=== PATIENT | female | born 2000 | race Caucasian/White ===

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

== ENCOUNTER → 2018-01-05 18:12 | Outpatient (CLI) | payer BC, SELFPAY ==
--- NOTE | 2018-01-05 18:17 | US_ITS ---
STUDY: ULTRASOUND OF THE FEMALE PELVIS - COMPLETE REASON FOR EXAM: Female, 17 years old. Pelvic pain LMP: January 05, 2018 TECHNIQUE: Endovaginal TECHNICAL QUALITY: Adequate. COMPARISON: None. FINDINGS: The uterus is anteverted and is in a midline position. The uterus measures 5.9 x 4.7 x 3.1 cm. Normal uterine cervix. The endometrium measures 3 mm in thickness, and is hyperechoic. There is no demonstrated endometrial mass. There is no demonstrated myometrial mass. The patient has an I.U.D. in the mid to lower endometrial cavity The right ovary is visualized. The right ovary measures 3.0 x 2.1 x 1.8 cm. There is no right ovarian cyst or ovarian mass. There is no visualized right adnexal mass or complex lesion. There is normal arterial and normal venous vascularity. The left ovary is visualized. The left ovary measures 3.0 x 1.9 x 1.9 cm. There is no left ovarian cyst or ovarian mass. There is no visualized left adnexal mass or complex lesion. There is normal arterial and normal venous vascularity. There is no fluid in the cul-de-sac. The pre void volume of the bladder was 442 ml with mild debris. US/Pelvic (Non ) IMPRESSION: IUD noted at the mid to lower endometrial cavity. Mild debris in the urinary bladder. Electronically Signed: Logan Felder DO at 23:46 EDT Tel [phone], Service support ,
--- NOTE | 2018-01-05 18:25 | US_ITS ---
STUDY: ULTRASOUND OF THE FEMALE PELVIS - COMPLETE REASON FOR EXAM: Female, 17 years old. Pelvic pain LMP: January 05, 2018 TECHNIQUE: Endovaginal TECHNICAL QUALITY: Adequate. COMPARISON: None. FINDINGS: The uterus is anteverted and is in a midline position. The uterus measures 5.9 x 4.7 x 3.1 cm. Normal uterine cervix. The endometrium measures 3 mm in thickness, and is hyperechoic. There is no demonstrated endometrial mass. There is no demonstrated myometrial mass. The patient has an I.U.D. in the mid to lower endometrial cavity The right ovary is visualized. The right ovary measures 3.0 x 2.1 x 1.8 cm. There is no right ovarian cyst or ovarian mass. There is no visualized right adnexal mass or complex lesion. There is normal arterial and normal venous vascularity. The left ovary is visualized. The left ovary measures 3.0 x 1.9 x 1.9 cm. There is no left ovarian cyst or ovarian mass. There is no visualized left adnexal mass or complex lesion. There is normal arterial and normal venous vascularity. There is no fluid in the cul-de-sac. The pre void volume of the bladder was 442 ml with mild debris. US/Transvaginal Non- IMPRESSION: IUD noted at the mid to lower endometrial cavity. Mild debris in the urinary bladder. Electronically Signed: Logan Felder DO at 23:46 EDT Tel [phone], Service support ,
== END ==
PROVIDERS: Family Provider Pediatrics; PCP Pediatrics; Referring Provider Obstetrics & Gynecology; Visit Provider Obstetrics & Gynecology
DX: R10.2 Pelvic and perineal pain (principal)
CPT/HCPCS: 76830; 76856; 93976

== ENCOUNTER → 2020-01-26 17:01 | Outpatient (CLI) | payer BC, SELFPAY ==
[2020-01-26 13:28] VITALS: BMI 27.6
[2020-01-31 18:25] LABS: HPV Reflexed? NOT INDICATED
== END ==
PROVIDERS: PCP Pediatrics; Referring Provider Obstetrics & Gynecology; Visit Provider Obstetrics & Gynecology
DX: Z12.4 Encounter for screening for malignant neoplasm of cervix (principal)
CPT/HCPCS: 88175; G0145

== ENCOUNTER 2021-04-22 12:25 | Outpatient (CLI) | payer BC, SELFPAY ==
--- NOTE | 2021-04-22 12:33 | US_ITS ---
STUDY: ULTRASOUND OF THE FEMALE PELVIS - COMPLETE REASON FOR EXAM: Female, 20 years old. PAIN WORSE ON RIGHT SIDE -- IUD -- LMP 04/01/2021 LMP: 04/01/2021. TECHNIQUE: Transvaginal TECHNICAL QUALITY: Adequate. COMPARISON: Comparison is made with prior study dated 01/05/2018. FINDINGS: The uterus is anteverted and is tilted to the right side of the pelvis. The uterus measures 6.5 cm x 4.5 cm x 2.6 cm. Normal uterine cervix. The endometrium measures 2.3 mm in thickness, and is hyperechoic. There is no demonstrated endometrial mass. There is no demonstrated myometrial mass. I.U.D. - The patient does have an I.U.D. fundal in location The right ovary is visualized. The right ovary measures 3.9 cm x 2 cm x 2.2 cm. There is no right ovarian cyst or ovarian mass. There is no visualized right adnexal mass or complex lesion. There is normal arterial and normal venous vascularity. The left ovary is visualized. The left ovary measures 3 cm x 2.1 cm x 2.4 cm. There is no left ovarian cyst or ovarian mass. There is no visualized left adnexal mass or complex lesion. There is normal arterial and normal venous vascularity. There is no fluid in the cul-de-sac. The pre void volume of the bladder was 150 ml. US/Pelvic (Non ) IMPRESSION: Normal female pelvis. Electronically Signed: Joby Johnson MD at 15:13 EST , Service support ,
--- NOTE | 2021-04-22 12:33 | US_ITS ---
STUDY: ULTRASOUND OF THE FEMALE PELVIS - COMPLETE REASON FOR EXAM: Female, 20 years old. Pain WORSE ON RIGHT SIDE -- IUD -- LMP 04/01/2021 LMP: TECHNIQUE: TECHNICAL QUALITY: Adequate. COMPARISON: None. FINDINGS: The uterus is anteverted and is in a midline position. The uterus measures cm. Normal uterine cervix. The endometrium measures mm in thickness, and is . There is no demonstrated endometrial mass. There is no demonstrated myometrial mass. I.U.D. - The patient does not have an I.U.D. The right ovary is visualized. The right ovary measures cm. There is no right ovarian cyst or ovarian mass. There is no visualized right adnexal mass or complex lesion. There is normal arterial and normal venous vascularity. The left ovary is visualized. The left ovary measures cm. There is no left ovarian cyst or ovarian mass. There is no visualized left adnexal mass or complex lesion. There is normal arterial and normal venous vascularity. There is no fluid in the cul-de-sac. The pre void volume of the bladder was ml. The post void volume of the bladder was ml. Polycystic ovary disease: No. US/Transvaginal Non- IMPRESSION: Normal female pelvis. Electronically Signed: Joby Johnson MD at 15:14 EST , Service support ,
== END 2021-04-22 23:59 | disposition short-term general hospital (02) ==
PROVIDERS: PCP Pediatrics; Referring Provider Nurse Practitioner Women's Health; Visit Provider Nurse Practitioner Women's Health
DX: R10.2 Pelvic and perineal pain (principal); Z30.431 Encounter for routine checking of intrauterine contraceptive device
CPT/HCPCS: 76830; 76856; 93976

== ENCOUNTER 2021-06-11 09:54 | Outpatient (CLI) | payer BC, SELFPAY ==
[2021-06-11 11:11] LABS: AST(SGOT) 18 U/L (15-37); Alanine Aminotransfer ALT/SGPT 20 U/L (13-56); Cholesterol 205 mg/dL (200); High Density Lipoprotein 61 mg/dL; Triglycerides 82 mg/dL; Very Low Density Lipoprotein 16 mg/dL (5-40)
[2021-06-11 11:13] LABS: hCG Titer Quant., Serum < 1 mIU/mL (1-3)
== END 2021-06-11 23:59 | disposition home or self-care (01) ==
LOC: LAB 09:58
PROVIDERS: Referring Provider Dermatology; Visit Provider Dermatology
DX: L70.0 Acne vulgaris (principal); Z79.899 Other long term (current) drug therapy
CPT/HCPCS: 36415; 80061; 84450; 84460; 84702

== ENCOUNTER 2021-07-16 14:18 | Outpatient (CLI) | payer BC, SELFPAY ==
[2021-07-16 17:57] LABS: Internal QC Validated? YES +Cl - CLEAR BKGD; Pregnancy, Urine Negative Negative
== END 2021-07-16 23:59 | disposition home or self-care (01) ==
LOC: MTLAB 14:20
PROVIDERS: Referring Provider Dermatology; Visit Provider Dermatology
DX: L70.0 Acne vulgaris (principal); Z79.899 Other long term (current) drug therapy
CPT/HCPCS: 81025

== ENCOUNTER → 2021-08-15 | Outpatient (CLI) | payer BC, SELFPAY ==
[2021-08-15 17:29] LABS: Internal QC Validated? YES +Cl - CLEAR BKGD; Pregnancy, Urine Negative Negative
== END | disposition home or self-care (01) ==
LOC: MTLAB 15:29
PROVIDERS: PCP Pediatrics; Referring Provider Dermatology; Visit Provider Dermatology
DX: L70.0 Acne vulgaris (principal); Z79.899 Other long term (current) drug therapy
CPT/HCPCS: 81025

== ENCOUNTER → 2021-08-21 | Outpatient (CLI) | payer BC, SELFPAY ==
--- NOTE | 2021-08-21 17:43 | MRI_ITS ---
STUDY: MR Knee W/O Contrast 08/21/2021 7:03 PM REASON FOR EXAM: Female, 21 years old. ANTERIOR LEFT KNEE PAIN, HX PRIOR SURGERY 2012-ACL REPLACEMENT, MEDIAL AND LATERAL MENISCUS REPAIR TECHNIQUE: Standardized fat and water weighted pulse sequences were obtained in all 3 orthogonal planes. COMPARISON: Mar 18 2016 8:48am FINDINGS: Tear of the posterior horn of the medial meniscus with inferior surfacing. Normal hyaline cartilage of the medial femorotibial compartment. Normal medial femoral condyle and tibial plateau. Normal medial collateral ligamentous complex (MCL). Normal distal semimembranosus, gracilis and semitendinosus tendons. Normal lateral meniscus. Normal hyaline cartilage of the lateral femorotibial compartment. There is reactive marrow edema of the posterior aspect of the lateral tibial plateau. Normal proximal tibiofibular articulation. Normal lateral collateral (fibular) ligament. Normal popliteus tendon. Normal biceps femoris tendon. Status post ACL reconstruction with complete recurrent tear of the graft. There is buckling of an intact PCL. Normal congruent patellofemoral articulation. Normal hyaline cartilage of the patellofemoral compartment. Normal medial and lateral patellar retinaculum. Normal quadriceps tendon. Normal patellar tendon. Normal Hoffa''s fat pad. There is a small volume joint effusion. The soft tissues are unremarkable. The otherwise visualized osseous structures are unremarkable. MRI/Lower Ext Joint Only (Routine) IMPRESSION: Status post ACL reconstruction with complete recurrent tear of the graft. Tear of the posterior horn of the medial meniscus with inferior surfacing. There is a small volume joint effusion. There is reactive marrow edema of the posterior aspect of the lateral tibial plateau. Electronically Signed: Roland Lang MD at 19:09 EDT ,
== END | disposition home or self-care (01) ==
LOC: MRI 17:43
PROVIDERS: PCP Pediatrics
DX: M23.92 Unspecified internal derangement of left knee (principal)
CPT/HCPCS: 73721

== ENCOUNTER → 2021-09-30 | Outpatient (CLI) | payer BC, SELFPAY ==
[2021-09-30 10:35] LABS: Internal QC Validated? YES +Cl - CLEAR BKGD; Pregnancy, Serum, hCG Quali. NEGATIVE Negative
[2021-09-30 10:52] LABS: AST(SGOT) 20 U/L (15-37); Alanine Aminotransfer ALT/SGPT 31 U/L (13-56); Cholesterol 208 mg/dL (200); High Density Lipoprotein 47 mg/dL; Triglycerides 101 mg/dL; Very Low Density Lipoprotein 20 mg/dL (5-40)
== END | disposition home or self-care (01) ==
LOC: MTLAB 08:34
PROVIDERS: PCP Pediatrics; Referring Provider Dermatology; Visit Provider Dermatology
DX: L70.0 Acne vulgaris (principal); Z79.899 Other long term (current) drug therapy
CPT/HCPCS: 36415; 80061; 84450; 84460; 84703

== ENCOUNTER → 2021-10-22 | Outpatient (CLI) | payer BC, SELFPAY ==
[2021-10-22 18:03] LABS: Internal QC Validated? YES +Cl - CLEAR BKGD; Pregnancy, Urine Negative Negative
== END | disposition home or self-care (01) ==
LOC: MTLAB 16:44
PROVIDERS: PCP Pediatrics; Referring Provider Dermatology; Visit Provider Dermatology
DX: L70.0 Acne vulgaris (principal); Z79.899 Other long term (current) drug therapy
CPT/HCPCS: 81025

== ENCOUNTER → 2021-11-19 | Outpatient (CLI) | payer BC, SELFPAY ==
[2021-11-19 18:37] LABS: Internal QC Validated? YES +Cl - CLEAR BKGD; Pregnancy, Urine Negative Negative
== END | disposition home or self-care (01) ==
LOC: MTLAB 14:40
PROVIDERS: PCP Pediatrics; Referring Provider Dermatology; Visit Provider Dermatology
DX: L70.0 Acne vulgaris (principal); Z79.899 Other long term (current) drug therapy
CPT/HCPCS: 81025

== ENCOUNTER → 2021-12-26 | Outpatient (CLI) | payer BC, SELFPAY ==
[2021-12-26 12:13] LABS: Internal QC Validated? YES +Cl - CLEAR BKGD; Pregnancy, Urine Negative Negative
== END | disposition home or self-care (01) ==
LOC: MTLAB 09:33
PROVIDERS: PCP Pediatrics; Referring Provider Dermatology; Visit Provider Dermatology
DX: L70.0 Acne vulgaris (principal); Z79.899 Other long term (current) drug therapy
CPT/HCPCS: 81025

== ENCOUNTER → 2022-02-04 | Outpatient (CLI) | payer BC, SELFPAY ==
[2022-02-04 12:06] LABS: Internal QC Validated? YES +Cl - CLEAR BKGD; Pregnancy, Urine Negative Negative
== END | disposition home or self-care (01) ==
LOC: MTLAB 10:47
PROVIDERS: PCP Pediatrics; Referring Provider Dermatology; Visit Provider Dermatology
DX: L70.0 Acne vulgaris (principal); Z79.899 Other long term (current) drug therapy
CPT/HCPCS: 81025

== ENCOUNTER → 2022-03-18 | Outpatient (CLI) | payer BC, SELFPAY ==
[2022-03-18 15:16] LABS: Internal QC Validated? YES +Cl - CLEAR BKGD; Pregnancy, Urine Negative Negative
== END | disposition home or self-care (01) ==
PROVIDERS: PCP Pediatrics; Referring Provider Dermatology; Visit Provider Dermatology
DX: L70.0 Acne vulgaris (principal); Z79.899 Other long term (current) drug therapy
CPT/HCPCS: 81025

== ENCOUNTER → 2022-03-28 | Outpatient (CLI) | payer BC, SELFPAY ==
[2022-03-28 12:15] LABS: Internal QC Validated? YES +Cl - CLEAR BKGD; Pregnancy, Urine Negative Negative
== END | disposition home or self-care (01) ==
LOC: MTLAB 10:12
PROVIDERS: PCP Pediatrics; Referring Provider Dermatology; Visit Provider Dermatology
DX: Z79.899 Other long term (current) drug therapy (principal)
CPT/HCPCS: 81025

== ENCOUNTER → 2022-05-06 | Outpatient (CLI) | payer BC, SELFPAY ==
[2022-05-06 15:21] LABS: Internal QC Validated? YES +Cl - CLEAR BKGD; Pregnancy, Urine Negative Negative
== END | disposition home or self-care (01) ==
LOC: MTLAB 11:37
PROVIDERS: PCP Pediatrics; Referring Provider Dermatology; Visit Provider Dermatology
DX: L70.0 Acne vulgaris (principal); Z79.899 Other long term (current) drug therapy
CPT/HCPCS: 81025

== ENCOUNTER → 2022-06-05 | Outpatient (CLI) | payer BC, SELFPAY ==
[2022-06-05 15:43] LABS: Internal QC Validated? YES +Cl - CLEAR BKGD; Pregnancy, Urine Negative Negative
== END | disposition home or self-care (01) ==
LOC: MTLAB 13:33
PROVIDERS: PCP Pediatrics; Referring Provider Dermatology; Visit Provider Dermatology
DX: L70.0 Acne vulgaris (principal); Z79.899 Other long term (current) drug therapy
CPT/HCPCS: 81025

== ENCOUNTER 2022-06-17 10:00 | Outpatient (RCR) | payer BC, SELFPAY ==
--- NOTE | 2021-12-13 13:29 | HP.PTEVAL_ITS ---
Patient's Visit Information MARIBELL SHIPLEY is a 21 year old F referred to Physical Therapy by SHARI SILVER with a diagnosis of L ACLR with meniscus repair. Date of Evaluation: 12/13/21 Physical Therapist: Angel Mclean DPT - Visit Plan Frequency: 2x /Week Duration: 4 Months Plan: Start with quad/glute activation, progressive knee ROM as tolerated. No forceful flexion greater than 90deg. Progress per protocol. May use VASO and ice to reduce edema. - Subjective Pt. is here today for her initial evaluation with diagnosis of S/P L ACL reconstruction with meniscal repair. DOS: 12/11/21. Pt. arrives today on crutches with proper use and TROM brace locked in extension. Pt. reports high levels of soreness, but is taking medication as prescribed. Pt. is a [employer] by [employer]. PMH: previous ACLR then re tare without reconstruction. This time she was on a 4 lopez and tipped it, in attempt to correct self she stuck her leg out to brace and felt a pop. Resulted in ACL and meniscal tear. She is currently NWBing on the LLE. She reports icing at home frequently and elevating. She has not attempted to bend her knee and issac bandage is still in place with ice unit, which she reports she is allowed to remove tomorrow. No dizziness, shortness of breath, or fever noted. No calf pain noted. Pt. is hopeful to get back to work and be able to complete all recreational activities without limitations. - Pain L knee Pain Intensity (Out of 10): 6 Pain Intensity Range: 3, 8 - Objective POSTURE: Pt. stands with use of B axillary crutches with NWBing on LLE. TROM brace in place. PALPATION: Pt. has no tenderness throughout LLE, Normal healing incision noted. No calf tenderness. NEURO: normal sensation, normal DTR of L Achilles. ROM: R knee 0-0-135deg. L knee: 0-3-50deg. Tightness noted in B HS. MMT: RLE 5/5 throughout. LLE: Pt. is able to do a quad set, but is difficult. Pt. is unable to do a SLR with brace on this date. GAIT: Pt. is able to ambulate with crutches with good NWB. Pt. reports not tolerating TTWBing well. - Balance/Special Test Scores Lower Extremity Functional Score: 7 - Goals Goal 1:: STG: pt. to be able to complete SLR with out quad lag 2x10 sets Goal Time Frame: 2 Weeks Goal 2:: STG: Pt. to have increased L knee ROM to 0-0-120deg actively without increase in symptoms. Goal Time Frame: 2-4 Weeks Goal 3:: STG: Pt. to have L knee edema close to symmetrical of the R knee. Goal Time Frame: 2-4 Weeks Goal 4:: LTG: Pt. to have normal gait pattern without use of crutches without increase in symptoms. Goal Time Frame: 4-6 Weeks - Rehabilitation Potential Physical Therapy Diagnosis: Pt. has signs and symptoms of L ACLR with meniscus repair with DOS: 12/11/21. Pt. has subsequent hypomobility, weakness, difficulty with gait, decreased functional mobility. Pt. would benefit from PT to address the above limitations progressing back to all recreational and work related activities without limitations. Rehabilitation Potential: Excellent - Anticipated Interventions Patient/Client Instruction: Educate patient on: Condition, Plan of Care, Risk Factors, Benefits of Fitness Program For the Purpose of:: To improve health and function, To foster healthy habits, To improve decision making, To facilitate caregiver knowledge, To improve self management, To prevent re-injury, To improve ability to perform tasks related to life management Therapeutic Exercise to Include: Strength training, Power training, Balance training, Coordination, Body mechanics, Postural training, Flexibilty training, Gait and locomotor training, Passive ROM, Active ROM For the Purpose of:: To decrease pain, To decrease swelling/inflammation, To increase ROM, To improve nutrient delivery to tissue, To increase oxygenation perfusion, To improve muscle performance and motor function, To improve ability to perform ADL's, To improve ability of physical actions for home/community/work/leisure, To improve gait and locomotor functions, To improve health of tissue, To decrease soft tissue restriction, To increase flexibility/ROM TENS: Yes Cryotherapy (ice pack, ice massage): Yes Vasopneumatic device: Yes For the Purpose of:: To decrease pain, To decrease swelling/inflammation, To increase ROM, To improve nutrient delivery to tissue, To increase oxygenation perfusion, To improve health of tissue, To decrease soft tissue restriction Thank you for the opportunity to evaluate your patient. For Medicare and Medicare O plans, please review the plan of care and approve it. It will need to be FAXED BACK to us at [phone] for Medicare purposes. For Medicare only, by signing this I certify the plan of care. Please let me know if there are questions or concerns regarding this plan of care. Physician Signature: Date:
--- NOTE | 2022-01-23 16:15 | HP.PTREVAL ---
SHARI SILVER, It has been my pleasure to treat MARIBELL SHIPLEY over the last 15 visits for L ACLR with meniscus repair. Please see the progress note below for an update on the physical therapy plan of care! Subjective: Pt. reports no issues today. She has been Objective/Function: ROM: 0-0-119deg AROM. PROM: 0-0-124deg after stretching. quad set: improved quad set, but not perfect yet. SLR: 15 with slight lag with SLR. GAIT: Pt. does have a tendency to lack TKE during L stance phase. After stretching improves. She denies much pain with walking. She needs to continue to work on TKE strength and ROM. Flexion is decent. Pt. to follow up with physician tomorrow. Plan Plan: Awaiting official. WB status call from doctor. Start with quad/glute activation, progressive knee ROM as tolerated. No forceful flexion greater than 90deg. Progress per protocol. May use VASO and ice to reduce edema. Balance/Gait/Functional tests - Balance/Special Test Scores Lower Extremity Functional Score: 7 Goals Goal 1:: STG: pt. to be able to complete SLR with out quad lag 2x10 sets Goal Time Frame: 2 Weeks Goal Progress: Progressing Goal 2:: STG: Pt. to have increased L knee ROM to 0-0-120deg actively without increase in symptoms. Goal Time Frame: 2-4 Weeks Goal Progress: Goal Met Goal 3:: STG: Pt. to have L knee edema close to symmetrical of the R knee. Goal Time Frame: 2-4 Weeks Goal Progress: Progressing Goal 4:: LTG: Pt. to have normal gait pattern without use of crutches without increase in symptoms. Goal Time Frame: 4-6 Weeks Goal Progress: Progressing Goal 5:: LTG: Pt. to have strength 90% of each other throughout. Goal Time Frame: 2-4 Weeks Goal Progress: Progressing Anticipated Interventions Patient/Client Instruction: Educate patient on: Condition, Plan of Care, Risk Factors, Benefits of Fitness Program For the Purpose of:: To improve health and function, To foster healthy habits, To improve decision making, To facilitate caregiver knowledge, To improve self management, To prevent re-injury, To improve ability to perform tasks related to life management Therapeutic Exercise to Include: Strength training, Power training, Balance training, Coordination, Body mechanics, Postural training, Flexibilty training, Gait and locomotor training, Passive ROM, Active ROM For the Purpose of:: To decrease pain, To decrease swelling/inflammation, To increase ROM, To improve nutrient delivery to tissue, To increase oxygenation perfusion, To improve muscle performance and motor function, To improve ability to perform ADL's, To improve ability of physical actions for home/community/work/leisure, To improve gait and locomotor functions, To improve health of tissue, To decrease soft tissue restriction, To increase flexibility/ROM TENS: Yes Cryotherapy (ice pack, ice massage): Yes Vasopneumatic device: Yes For the Purpose of:: To decrease pain, To decrease swelling/inflammation, To increase ROM, To improve nutrient delivery to tissue, To increase oxygenation perfusion, To improve health of tissue, To decrease soft tissue restriction Please do not hesitate to contact me at [phone] by phone or if you have questions or concerns regarding this new plan of care! Sincerely, Angel Mclean DPT
== END 2022-06-17 10:59 | disposition home or self-care (01) ==
LOC: PT 10:00
PROVIDERS: PCP Pediatrics
DX: Z47.89 Encounter for other orthopedic aftercare (principal)
CPT/HCPCS: 97014; 97016; 97110; 97161; 97164; G0283

== ENCOUNTER 2022-06-20 16:02 | Emergency (ER) | payer BC, SELFPAY ==
[2022-06-20 16:03] VITALS: BP 122/79; PULSE 103; RESP 16; TEMP 36.9; O2SAT 98; BMI 31.6
--- NOTE | 2022-06-20 16:12 | EX.ED.DYSGE1 ---
HPI <BALBIR Hughes - Last Filed: 06/20/22 17:00> History of Present Illness Chief Complaint: Lower Extremity Injury Narrative Narrative: 22-year-old female had a revision left knee surgery 3 days ago for a meniscal issue as well as scar tissue. Since then she developed some left calf pain. She had an outpatient ultrasound this morning showing a DVT and was sent here for treatment. She has no history of DVTs/PE and denies chest pain or shortness of breath. PFSH <BALBIR Hughes - Last Filed: 06/20/22 17:00> PFSH Home Medications levonorgestrel 14 mcg/24 hrs (3 yrs) 13.5 mg intrauterine device (Eva) 1 insert intrauterine ONCE 02/04/18 [History Last Taken Unknown] apixaban 5 mg (74 tabs) tablets in a dose pack (Eliquis DVT-PE Treat 30D Start) 5 mg PO BID #74 tabs 06/20/22 [Rx Last Taken Unknown] Allergy/AdvReac Type Severity Reaction Status Date / Time No Known Allergies Allergy Verified 06/20/22 16:05 Surgical History (Updated 11/07/21 @ 17:14 by Keily Magaña) meniscus surgery S/P ACL surgery screw in left knee Social History Smoking Status: Never smoker alcohol intake: never substance use type: does not use caffeine: Yes what type of physical activity do you participate in: walking seatbelt use: always do you feel safe at home: Yes additional social history: Works at [employer] Going to [employer] in November ROS <BALBIR Hughes - Last Filed: 06/20/22 17:00> ROS ED ROS Narrative Constitutional: Negative for fever, chills, malaise. CVS: Negative for palpitations, chest pain, syncope. Respiratory: Negative for shortness of breath, cough, orthopnea. Neuro: Negative for motor/sensory dysfunction. Skin: Negative for rash, abscess, or wound. Musc: Positive for left flank pain. Heme: Negative for easy bruising, bleeding, lymphadenopathy. EXAM <BALBIR Hughes - Last Filed: 06/20/22 17:00> Physical Exam Narrative Exam Narrative: CONST: Patient sitting in no acute distress. EYES: Normal inspection. NECK: Normal inspection. RESP: No respiratory distress, CTAB. CVS: Regular rate and rhythm, no murmur, no gallop. SKIN: Color normal, no rash, warm, dry, intact. EXTREMITIES: Normal appearance with symmetric lower extremities, slight tenderness left upper calf no palpable cords, no erythema or skin changes. Full ROM, normal strength and sensation, compartments soft, 2+ DP pulses. NEURO: Oriented x4. PSYCH: Normal affect. Const Vital Signs: 06/20/22 16:03 Temperature 98.4 F Temperature Source Temporal Pulse Rate 103 H Respiratory Rate 16 Blood Pressure 122/79 H Blood Pressure Mean 93 Pulse Ox 98 Oxygen Delivery Method Room Air <Dr. Yahir Woodard MD - Last Filed: 06/20/22 16:32> Physical Exam Const Vital Signs: 06/20/22 16:03 Temperature 98.4 F Temperature Source Temporal Pulse Rate 103 H Respiratory Rate 16 Blood Pressure 122/79 H Blood Pressure Mean 93 Pulse Ox 98 Oxygen Delivery Method Room Air MDM <BALBIR Hughes - Last Filed: 06/20/22 17:00> [facility] MDM Narrative Medical decision making narrative: Patient is POD #3 from left knee surgery and had an outpatient ultrasound positive for DVT. She has an acute DVT in the left A/P trunk, PTV and soleus vein. Her lower extremities appear normal, symmetric, no overlying skin changes or warmth. Neurovascularly intact. Compartments are soft. She will be started on Eliquis will likely need to be on this for 3 to 6 months. She has no baseline labs in the system so we will check blood counts and renal function prior to giving first dose of Eliquis in the ED along with a prescription for starter pack. CBC shows normal white count of 10.1, hemoglobin 12.9. BMP shows normal electrolyte and renal function. Patient was discharged in stable condition. Test considered but not ordered: CTA not indicated as she has no chest pain or shortness of breath, is 98% on room air. Heart rate is 103 but patient is tearful and anxious and is likely elevated secondary to this. Lab Data Attestation: I reviewed the patient's lab results. Labs: Laboratory Results - last 24 hr 06/20/22 06/20/22 16:34 16:34 WBC 10.1 RBC 4.26 Hgb 12.9 Hct 36.4 L MCV 85.4 MCH 30.3 MCHC 35.4 RDW Std Deviation 36.0 RDW Coeff of Sarkis 11.7 Plt Count 300 MPV 9.7 Immature Gran % (Auto) 0.500 Neut % (Auto) 63.7 Lymph % (Auto) 26.5 Banks % (Auto) 7.8 Eos % (Auto) 1.2 Baso % (Auto) 0.3 Absolute Neuts (auto) 6.4 Absolute Lymphs (auto) 2.67 Nucleated RBC % 0 Sodium 138 Potassium 3.6 Chloride 104 Carbon Dioxide 27.0 Anion Gap 7 BUN 13 Creatinine 0.74 Estim Creat Clear Calc 96.97 Est GFR (MDRD) Af Amer 124 Est GFR (MDRD) Non-Af 102 BUN/Creatinine Ratio 17.5 Glucose 102 Calcium 9.5 <Dr. Yahir Woodard MD - Last Filed: 06/20/22 16:32> [facility] Lab Data Labs: Laboratory Results - last 24 hr 06/20/22 06/20/22 16:34 16:34 WBC 10.1 RBC 4.26 Hgb 12.9 Hct 36.4 L MCV 85.4 MCH 30.3 MCHC 35.4 RDW Std Deviation 36.0 RDW Coeff of Sarkis 11.7 Plt Count 300 MPV 9.7 Immature Gran % (Auto) 0.500 Neut % (Auto) 63.7 Lymph % (Auto) 26.5 Banks % (Auto) 7.8 Eos % (Auto) 1.2 Baso % (Auto) 0.3 Absolute Neuts (auto) 6.4 Absolute Lymphs (auto) 2.67 Nucleated RBC % 0 Sodium 138 Potassium 3.6 Chloride 104 Carbon Dioxide 27.0 Anion Gap 7 BUN 13 Creatinine 0.74 Estim Creat Clear Calc 96.97 Est GFR (MDRD) Af Amer 124 Est GFR (MDRD) Non-Af 102 BUN/Creatinine Ratio 17.5 Glucose 102 Calcium 9.5 Treatment and Re-Evaluation :: I have personally performed a face to face assessment of the patient and have reviewed the EDNA Note. I performed a substantive portion of the visit including all aspects of the following. My shahid findings include: History: Patient had surgery on her left knee in [place] on Thursday. On Thursday she started to get some pain in the back of her calf. No chest pain. No trouble breathing. No history of DVT or PE. No known family history. No abnormal bleeding. She called her orthopedic surgeon in [place]. An outpatient ultrasound was done that verified DVT. Exam: Well-healing knee area and port sites. No active bleeding. Knee is not really swollen. There is some slight tenderness to the proximal posterior calf. I do not feel a cord. There is no distended veins. Distal pulses are normal. No pallor or redness. Lungs are clear. Oxygen is normal at 98% on room air. Medical Decison Making: We will do labs to make sure she has normal platelets and normal renal function. Assuming these are normal we will get her started on Eliquis. She will need to follow-up with her primary physician orthopedic surgeon. They would likely need further dosing for 3 to 6 months. They will likely need to do repeat ultrasounds to gauge resolution. If she develops chest pain dyspnea or excessive bleeding she needs to return. I did talk with her that she is at some increased risk from bleeding from surgery. But this was on Thursday. The risk to her from bleeding into a compressible space is not as much as not treating a DVT. Other additions or changes: [None] Discharge Plan Triage Chief Complaint: Lower Extremity Injury ED Midlevel Provider: Sammie Pelletier ED Provider: Yahir Woodard Dx/Rx/DC Orders Clinical Impression: Acute deep vein thrombosis (DVT) of left lower extremity Instructions: DVT Dc Prescriptions: New Eliquis DVT-PE Treat 30D Start 5 mg (74 tabs) tablets,dose pack 5 mg PO BID Qty: 74 0RF No Action Eva 14 mcg/24 hour (3 years) intrauterine device 1 insert Intrauterine ONCE Primary Care Provider: Danay Tinoco Referrals: Danay Tinoco MD [Primary Care Provider] - Activity Restrictions/Additional Instructions: Follow the instructions on the Eliquis starter pack. You take a higher dose for the first week and then down to 5 mg twice a day. You will likely be on this for 3 to 6 months but see your orthopedic doctor for further instructions. Risks of blood thinners include increased bleeding. If you have a head injury you need to be evaluated in the ER immediately. If you notice blood in your vomit or your stool come to the ER. Disposition Disposition: Home, Self Care
[2022-06-20 16:51] LABS: Absolute Lymphocyte Count 2.67 X10^3/uL (0.83-4.51); Absolute Neutrophil Count 6.4 X10^3/uL (2.0-7.7); Basophil# 0.03 X10^3/uL; Basophil% 0.3 % (0-1); Eosinophil# 0.12 X10^3/uL; Eosinophils% 1.2 % (0-5); Hematocrit 36.4 % (37-47); Hemoglobin 12.9 g/dL (12.0-15.0); Lymphocyte # 2.67 X10^3/ul (0.83-4.51); Lymphocyte % 26.5 % (19-41); Mean Corp Hgb Conc 35.4 g/dL (32-36); Mean Corpuscular Hgb 30.3 pg (27.0-32.0); Mean Corpuscular Volume 85.4 fL (81-99); Mean Platelet Vol. 9.7 fl (6.2-12.0); Monocyte# 0.79 X10^3/uL; Monocyte% 7.8 % (0-10); NRBC Flagged by Analyzer 0 % (0-5); Neutrophil # 6.42 X10^3/uL (2.7-7.7); Neutrophil % 63.7 % (47-70); Platelet Count 300 K/mm3 (150-450); RBC Distribution Width CV 11.7 % (11.6-14.6); Red Blood Count 4.26 M/mm3 (4.2-5.4); White Blood Count 10.1 K/mm3 (4.4-11.0)
[2022-06-20 16:55] LABS: Anion Gap 7 (5-15); BUN 13 mg/dL (7-18); BUN/Creat Ratio 17.5 RATIO (10-20); Calcium,Total 9.5 mg/dL (8.5-10.1); Chloride 104 mmol/L (98-107); Creatinine, Serum 0.74 mg/dL (0.55-1.02); EST Glomerular Filtration Rate 102 mL/min (>60); Est Glom Filt Rate - Afr Amer 124 mL/min (>60); Estimated Creatinine Clearance 96.97 ml/min; Glucose 102 mg/dL (74-106); Potassium 3.6 mmol/L (3.5-5.1); Sodium Level 138 mmol/L (136-145)
[2022-06-20] MEDS: APIXABAN 5 MG TABLET 10 MG PO (17:10)
== END 2022-06-20 17:12 | disposition home or self-care (01) ==
PROVIDERS: Physician Assistant; Emergency Provider Emergency Medicine; PCP Pediatrics; Visit Provider Emergency Medicine
DX: I82.402 Acute embolism and thrombosis of unspecified deep veins of left lower extremity (principal)
CPT/HCPCS: 80048; 85025; 99283; A4216

== ENCOUNTER → 2022-06-20 | Outpatient (CLI) | payer BC, SELFPAY ==
--- NOTE | 2022-06-20 15:22 | VDLE_ITS ---
Reason For Study: Calf pain RIGHT LEFT CFV is compressible, spontaneous, phasic, GSV is normal. competent and demonstrates normal CFV is compressible, spontaneous, phasic, augmentation. competent, and demonstrates normal Procedure augmentation. This is a venous duplex using B-mode, color FV is compressible, spontaneous, phasic, flow and spectral Doppler. competent and demonstrates normal Exam performed in department. augmentation. A preliminary report was called and/or faxed POP V is compressible, spontaneous, phasic, to [place] and RN. Patient to go to ED for competent and demonstrates normal treatment. augmentation. LT PerV is compressible. Acute deep vein thrombosis is noted in the left T/P Trunk, PTV and SoleusV. VL/Venous Duplex US, Unilateral Interpretation Summary Acute deep venous thrombosis left tibioperoneal trunk, posterior tibial, and so leus veins Patent and compressible left great saphenous vein Normal flow patterns right common femoral vein Ordering Physician: SHARI SILVER Referring Physician: Danay Tinoco Performed By: Yudy Ribeiro RVT
== END | disposition home or self-care (01) ==
PROVIDERS: PCP Pediatrics
DX: Z98.890 Other specified postprocedural states (principal); M79.662 Pain in left lower leg
CPT/HCPCS: 93971

== ENCOUNTER → 2022-07-03 | Outpatient (CLI) | payer BC, SELFPAY ==
[2022-07-15 12:19] LABS: HPV Reflexed? NOT INDICATED
== END | disposition home or self-care (01) ==
LOC: LABSPEC 16:30
PROVIDERS: PCP Pediatrics; Visit Provider Obstetrics & Gynecology
DX: Z12.4 Encounter for screening for malignant neoplasm of cervix (principal)
CPT/HCPCS: 88175; G0145

== ENCOUNTER 2022-08-01 09:00 | Outpatient (RCR) | payer BC, SELFPAY ==
--- NOTE | 2022-07-04 10:07 | HP.PTEVAL_ITS ---
Patient's Visit Information MARIBELL SHIPLEY is a 22 year old F referred to Physical Therapy by SHARI SILVER with a diagnosis of S/P L knee arthroscopy. Date of Evaluation: 06/19/22 Physical Therapist: Angel Mclean DPT - Visit Plan Frequency: 2x /Week Duration: 6 Weeks Plan: Start with ROM progressing, add in quad sets. Progress proper gait mechanics working away from crutches as tolerated. Progress end range extension. Progress per protocol. - Subjective Pt. is here today for her initial evaluation with S/P L knee arthroscopy. Pt. has a cyclopes lesion debridement and removal of a meniscal implant. Pt. arrives with crutches with good tolerance. Pt. reports having some soreness, but is overall doing better than she was pre surgery. Pt. does have some swelling, but overall doing okay. Pt. denies N/T. She has been trying some ROM, but not much since having surgery a few days prior. She is to work on ROM and reduce swelling. She follow up with physician in 2-3 weeks. Pt. denies calf pain, no fever, no other issues noted. 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 - Pain L knee Pain Intensity (Out of 10): 3 Pain Intensity Range: 0, 5 - Objective POSTURE: Pt. has increased wt. shift to R side in stance. Pt. lacks TKE on L side in stance. PALPATION: Pt. has good healing incisions, no signs of infection noted. Negative homans sign. NEURO: normal sensation in BLEs. Pt. has normal achilles DTR in BLEs. ROM: R Knee: 0-0-137deg. L knee 0-3-118deg. Pt. has normal HS length. EDEMA: Pt. has increased edema in L compared to R side. Pt. 6cm difference mid patella. MMT: Pt. is a quad set, but minimal. SLR 10deg lag with some mild anterior knee pain. GAIT: Pt. is ambulating with 2 crutches with good tolerance. She tends to off load heavily during L stance phase and does no achieve TKE during gait progression. - Balance/Special Test Scores Lower Extremity Functional Score: 19 - Goals Goal 1:: LTG: Pt. to be I with HEP. Goal Time Frame: 4-6 Weeks Goal 2:: STG: Pt. to have reduced edema symmetrical bilaterally. Goal Time Frame: 2-4 Weeks Goal 3:: STG: Pt. to have increased L knee ROM to 0-0-130deg without increase in symptoms. Goal Time Frame: 2-4 Weeks Goal 4:: LTG: Pt. to ambulate without AD with normal gait pattern without increase in symptoms. Goal Time Frame: 4-6 Weeks Goal 5:: LTG: Pt. to have 5/5 strength throughout LLE. Goal Time Frame: 4-6 Weeks - Rehabilitation Potential Physical Therapy Diagnosis: Pt. has signs and symptoms consistent with S/P L knee arthroscopy due to cyclopes lesion and removal of meniscal implant. Pt. has marked loss of ROM, increased edema, weakness and difficulty with gait. Pt. would benefit from PT to address the above limitations progressing back to all functional activities as tolerated. Rehabilitation Potential: Excellent - Anticipated Interventions Patient/Client Instruction: Educate patient on: Condition, Plan of Care, Risk Factors, Benefits of Fitness Program For the Purpose of:: To foster healthy habits, To improve decision making, To facilitate caregiver knowledge, To improve self management, To prevent re- injury, To improve ability to perform tasks related to life management Therapeutic Exercise to Include: Strength training, Power training, Body me chanics, Postural training, Flexibilty training, Gait and locomotor training, Passive ROM, Active ROM, Dynamic Lumbar Stabilization For the Purpose of:: To decrease pain, To increase ROM, To improve nutrient delivery to tissue, To increase oxygenation perfusion, To improve muscle performance and motor function, To improve ability to perform ADL's, To improve gait and locomotor functions, To improve health of tissue, To decrease soft tissue restriction, To increase flexibility/ROM, To improve endurance, To improve balance Thank you for the opportunity to evaluate your patient. For Medicare and Medicare HMO plans, please review the plan of care and approve it. It will need to be FAXED BACK to us at [phone] for Medicare purposes. For Medicare only, by signing this I certify the plan of care. Please let me know if there are questions or concerns regarding this plan of care. Physician Signature: Date:
== END 2022-08-01 19:00 | disposition home or self-care (01) ==
LOC: PT 09:00
PROVIDERS: PCP Pediatrics
DX: M23.92 Unspecified internal derangement of left knee (principal)
CPT/HCPCS: 97110; 97161

== ENCOUNTER → 2022-09-26 | Outpatient (CLI) | payer BC, SELFPAY ==
--- NOTE | 2022-09-26 13:00 | VDLE_ITS ---
Reason For Study: Hx of DVT LLE RIGHT LEFT CFV is compressible, spontaneous, phasic, GSV is normal. competent and demonstrates normal CFV is compressible, spontaneous, phasic, augmentation. competent, and demonstrates normal Procedure augmentation. This is a venous duplex using B-mode, color FV is compressible, spontaneous, phasic, flow and spectral Doppler. competent and demonstrates normal Exam performed in department. augmentation. A preliminary report was called and/or faxed POP V is compressible, spontaneous, phasic, to Bert Ramachandran HEDIS MANAGER. competent and demonstrates normal augmentation. T/P Trunk is compressible. PTV is compressible. LT PerV is compressible. VL/Venous Duplex US, Unilateral Interpretation Summary Deep veins of the left lower extremity are patent and compressible segmentally. There is no evidence of left lower extremity deep vein thrombosis. The left great saphenous vein pablo ears patent and compressible segmentally. Ordering Physician: Bert Ramachandran Referring Physician: Danay Tinoco Performed By: Carmen Ocampo RDCS, RVT
== END | disposition home or self-care (01) ==
LOC: CVS 12:59
PROVIDERS: PCP Pediatrics; Referring Provider Nurse Practitioner Family; Visit Provider Nurse Practitioner Family
DX: I82.462 Acute embolism and thrombosis of left calf muscular vein (principal)
CPT/HCPCS: 93971

== ENCOUNTER → 2023-02-27 | Outpatient (CLI) | payer BC, SELFPAY ==
[2023-02-27 12:40] LABS: Absolute Lymphocyte Count 2.44 X10^3/uL (0.83-4.51); Absolute Neutrophil Count 3.1 X10^3/uL (2.0-7.7); Basophil# 0.02 X10^3/uL; Basophil% 0.3 % (0-1); Eosinophil# 0.15 X10^3/uL; Eosinophils% 2.3 % (0-5); Hematocrit 37.8 % (37-47); Hemoglobin 12.8 g/dL (12.0-15.0); Lymphocyte # 2.44 X10^3/ul (0.83-4.51); Mean Corp Hgb Conc 33.9 g/dL (32-36); Mean Corpuscular Hgb 29.8 pg (27.0-32.0); Mean Corpuscular Volume 88.1 fL (81-99); Mean Platelet Vol. 10.4 fl (6.2-12.0); Monocyte# 0.66 X10^3/uL; Monocyte% 10.3 % (0-10); NRBC Flagged by Analyzer 0 % (0-5); Neutrophil # 3.13 X10^3/uL (2.7-7.7); Neutrophil % 48.8 % (47-70); Platelet Count 323 K/mm3 (150-450); RBC Distribution Width CV 11.4 % (11.6-14.6); Red Blood Count 4.29 M/mm3 (4.2-5.4); White Blood Count 6.4 K/mm3 (4.4-11.0)
[2023-02-27 13:06] LABS: ALB/GLOB Ratio 0.9 RATIO (0.9-2.4); AST(SGOT) 17 U/L (15-37); Alanine Aminotransfer ALT/SGPT 31 U/L (13-56); Albumin, Serum 3.8 g/dL (3.2-5.0); Alkaline Phosphatase 62 U/L (45-117); Anion Gap 6 (5-15); BUN 14 mg/dL (7-18); BUN/Creat Ratio 19.1 RATIO (10-20); Calcium,Total 8.8 mg/dL (8.5-10.1); Chloride 105 mmol/L (98-107); Cholesterol 206 mg/dL (200); Creatinine, Serum 0.73 mg/dL (0.55-1.02); EST Glomerular Filtration Rate 103 mL/min (>60); Est Glom Filt Rate - Afr Amer 125 mL/min (>60); Globulin 4.1 g/dL (2.2-4.2); Glucose 92 mg/dL (74-106); High Density Lipoprotein 54 mg/dL; Potassium 3.9 mmol/L (3.5-5.1); Protein, Total 7.9 g/dL (6.4-8.2); Sodium Level 137 mmol/L (136-145); Triglycerides 73 mg/dL; Very Low Density Lipoprotein 15 mg/dL (5-40)
[2023-02-27 13:48] LABS: Insulin 17.9 mU/L (2.6-37.6)
[2023-02-27 14:09] LABS: Hemoglobin A1c 5.4 % (3.8-5.6)
[2023-02-27 15:44] LABS: Thyroid Stim Hormone (TSH) 1.75 uIU/mL (0.358-3.74)
== END | disposition home or self-care (01) ==
LOC: MTLAB 09:50
PROVIDERS: PCP Pediatrics
DX: R63.5 Abnormal weight gain (principal)
CPT/HCPCS: 36415; 80053; 80061; 83036; 83525; 84443; 85025

== ENCOUNTER → 2023-06-16 | Outpatient (CLI) | payer BC, SELFPAY ==
--- NOTE | 2023-06-16 15:18 | US_ITS ---
INDICATION: Pelvic pain EXAMINATION: Ultrasound US Pelvis Non OB Complete With Transvaginal Imaging TECHNIQUE: Transabdominal and transvaginal pelvic ultrasound was performed. Grayscale, spectral waveform, and color flow Doppler evaluation of the adnexa. COMPARISON: Prior study dated: 1021 FINDINGS: UTERUS: Anteverted. The uterus measures 8.1 x 4.5 x 3.2 cm. There is no uterine mass. The endometrial stripe measures 3 mm in AP diameter which is within normal limits. There is an IUD within the limitation cavity was somewhat low in position. RIGHT OVARY: The right ovary measures 3.4 x 1.6 x 1.8 cm. Non-enlarged, normal echogenicity. There is normal arterial inflow and venous outflow present in the right ovary. LEFT OVARY: The left ovary measures 2.7 x 2.5 3.2 cm. There is a small cyst in the left ovary measuring about 2.2 cm There is normal arterial inflow and venous outflow present in the left ovary. FREE FLUID: None. US/Transvaginal Non- IMPRESSION: IUD somewhat low in position in the lower uterine endometrial cavity. Otherwise no significant abnormality is seen. Small left ovarian cyst. Electronically Signed: Yanick Jacobo MD at 9:12 EST ,
== END | disposition home or self-care (01) ==
PROVIDERS: PCP Nurse Practitioner Family; Referring Provider Nurse Practitioner Women's Health; Visit Provider Nurse Practitioner Women's Health
DX: Z30.431 Encounter for routine checking of intrauterine contraceptive device (principal); R10.2 Pelvic and perineal pain
CPT/HCPCS: 76830; 76856

== ENCOUNTER → 2023-06-25 | Outpatient (CLI) | payer BC, SELFPAY ==
--- OUTSIDE RECORDS SUMMARY | 2023-06-25 09:20 | XMS RPT_ITS | CCD ---
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 Darnell Mcintyre Attending Unavaila ble UNKNOWN, PCP Primary Care Unavailable Voos, Dr. Darnell Mcintyre Attending Unavaila ble UNKNOWN, PCP Primary Care Unavailable Bee, Mr. Bossman Parry Referring Unavaila geovani Quinones MD, Clyde Daniel Primary Care Provider Cherry Freeman Primary Care Provider BETTY LEIVA Attending Unavailable CLYDE QUINONES Primary Care Unavailable BETTY LEIVA Admitting Unavailable CLYDE QUINONES Primary Care Unavailable BETTY LEIVA Attending Unavailable BETTY LEIVA Admitting Unavailable STACIE CLYDE C Primary Care Unavailable SELF, SELF Referring Unavailable SHARI MARTIN Attending Unavailable SELF, SELF Referring Unavailable BETTY LEIVA Attending Unavailable KRISTI QUINONESA Fredy Primary Care Unavailable BETTY LEIVA Attending Unavailable BETTY LEIVA Referring Unavailable STACIE, CLYDE C Primary Care Unavailable SELF, SELF Referring Unavailable BETTY LEIVA Attending Unavailable STACIE, CLYDE C Primary Care Unavailable SELF, SELF Referring Unavailable BETTY LEIVA Attending Unavailable STACIE, CLYDE C Primary Care Unavailable SELF, SELF Referring Unavailable STACIE, CLYDE C Primary Care Unavailable SHARI MARTIN Attending Unavailable STACIE, CLYDE C Primary Care Unavailable BETTY LEIVA Referring Unavailable BETTY LEIVA Attending Unavailable CLYDE QUINONES Primary Care Unavailable SELF, SELF Referring Unavailable BETTY LEIVA Attending Unavailable CLYDE QUINONES Primary Care Unavailable SELF, SELF Referring Unavailable SHARI MARTIN Attending Unavailable SHARI MARTIN R Attending Unavailable CLYDE QUINONES Primary Care Unavailable VAUGHN MARTINE R Referring Unavailable CLYDE QUINONES Primary Care Unavailable SHARI MARTIN R Attending Unavailable VAUGHN MARTINE R Referring Unavailable SELF, SELF Referring Unavailable CHERRY RAMACHANDRAN Primary Care Unavailable BETTY LEIVA Attending Unavailable CHERRY RAMACHANDRAN Primary Care Unavailable BETTY LEIVA Referring Unavailable CLYDE QUINONES Primary Care Unavailable SHARI MARTIN R Attending Unavailable VAUGHN MARTINE R Referring Unavailable SELF, SELF Referring Unavailable KAREN WEBSTER Attending Unavailable CLYDE QUINONES Primary Care Unavailable CLYDE QUINONES Primary Care Unavailable Medications Current Medications Medication Drug Class(es) Dates Sig (Normalized) Sig (Original) cephalexin 500 mg oral capsule (1 source) Cephalosporin Antibacterial Start: 12-11-2021 End: 12-16-2021 take 1 capsule by mouth every twelve hours cephALEXin (Keflex) 500 MG capsule Indications: Internal derangement of left knee Take 1 by mouth every 12 hours. 10 capsule 0 12/11/2021 12/16/2021 Active DISABILITY PLACARD (7 sources) Start: 11-14-2021 End: 02-17-2022 DISABILITY PLACARD Indications: Status post knee surgery Dx: Status post knee surgery End Date: 02/17/22 1 Each 0 11/14/2021 02/17/2022 Active Completed/Discontinued Medications Medication Drug Class(es) Dates Sig (Normalized) Sig (Original) acetaminophen 325 mg oral tablet (1 source) Start: 12-11-2021 End: 12-11-2021 acetaminophen (TYLENOL) tablet 975 mg Problems Active Problems Problem Classification Problem Date Documented Da te Episodic/Chronic Complication of device; implant or graft (3 sources) Mechanical complication of internal joint prosthesis; Translations: [Other mechanical complication of other internal orthopedic devices, implants and grafts, initial encounter] Onset: 03-24-2023 03-24-2023 Episodic Joint disorders and dislocations; trauma-related (17 sources) Derangement of medial meniscus of left knee; Translations: [Other meniscus derangements, unspecified medial meniscus, left knee] Onset: 04-15-2023 Chronic Joint disorders and dislocations; trauma-related (2 sources) Acute tear of medial meniscus of left knee; Translations: [Other tear of medial meniscus, current injury, left knee, initial encounter] Episodic Other bone disease and musculoskeletal deformities (4 sources) Apophysitis; Translations: [Osteochondropathy, unspecified of unspecified site] Onset: 01-16-2010 01-16-2010 Chronic Other bone disease and musculoskeletal deformities (1 source) Bone cyst; Translations: [Other cyst of bone, unspecified site] Episodic Other injuries and conditions due to external causes (2 sources) Injury of left knee; Translations: [Unspecified injury of left lower leg, initial encounter] Episodic Other nervous system disorders (2 sources) Other chronic pain; Translations: [Other chronic pain] Onset: 03-24-2023 Chronic Other non-traumatic joint disorders (8 sources) Pain in left knee; Translations: [Pain in joint, lower leg] Onset: 03-24-2023 Episodic Other nutritional; endocrine; and metabolic disorders (8 sources) Obese class I; Translations: [Obesity, unspecified] Onset: 08-19-2022 08-19-2022 Chronic Residual codes; unclassified (3 sources) History of arthroscopy of knee joint; Translations: [Other specified postprocedural states] Episodic Residual codes; unclassified (2 sources) Other general symptoms and signs; Translations: [Other general symptoms and signs] Onset: 10-21-2022 Episodic Residual codes; unclassified (1 source) History finding; Translations: [Other specified conditions influencing health status] Episodic Sprains and strains (4 sources) Rupture of anterior cruciate ligament of left knee; Translations: [Sprain of anterior cruciate ligament of left knee, initial encounter] Episodic Past or Other Problems Problem Classification Problem Date Documented Date Episodic/Chronic Other injuries and conditions due to external causes (2 sources) Unspecified injury of left lower leg, initial encounter; Translations: [Unspecified injury of left lower leg, initial encounter] Onset: 06-06-2022 Episodic Residual codes; unclassified (2 sources) Pain; Translations: [Pain] Onset: 01-09-2023 Episodic Residual codes; unclassified (2 sources) Other specified postprocedural states; Translations: [Other specified postprocedural states] Onset: 12-17-2022 Episodic Results Test Name Value Interpretation Reference Range Facil ity Vital Signs Date Time Vital Sign Value Performing Clinician Taiwo garcía 04-15-2023 09:15-0500 Diastolic blood pressure 60 mm[Hg] Betty Leiva MD Work Phone: [facility] 04-15-2023 09:15-0500 Heart rate 65 /min Betty Leiva MD Work Phone: [facility] 04-15-2023 09:15-0500 Respiratory rate 12 /min Betty Leiva MD Work Phone: [facility] 04-15-2023 09:15-0500 SaO2% (BldA) [Mass fraction] 96 % Betty Leiva MD Work Phone: [facility] 04-15-2023 09:15-0500 Systolic blood pressure 102 mm[Hg] Betty Leiva MD Work Phone: [facility] 04-15-2023 08:23-0500 Body temperature 97.5 [degF] Betty Leiva MD Work Phone: [facility] 04-15-2023 06:33-0500 Body height 160 cm Betty Leiva MD Work Phone: [facility] 04-15-2023 06:33-0500 Body mass index (BMI) [Ratio] 31.53 kg/m2 Betty Leiva MD Work Phone: [facility] 04-15-2023 06:33-0500 Body weight 80.74 kg Betty Leiva MD Work Phone: [facility] 10-27-2022 16:50-0400 Body height 160.02 cm Referring Provider Unknown UV-Omohqrkjyiup-Cb sman 200 Work Phone: 10-27-2022 16:50-0400 Body mass index (BMI) [Ratio] 27.46 kg/m2 Referring Provider Unknown QP-Tlaqnetvwlgn-Kj sman 200 Work Phone: 10-27-2022 16:50-0400 Body surface area Derived from formula 1.74 m2 Referring Provider Unknown GV-Lggyrahhwkdu-Vb sman 200 Work Phone: 10-27-2022 16:50-0400 Body weight 70.31 kg Referring Provider Unknown MC-Nhiievrhexzb-Iq sman 200 Work Phone: 06-16-2022 14:15-0500 Diastolic blood pressure 67 mm[Hg] Betty Leiva MD Work Phone: [facility] 06-16-2022 14:15-0500 Heart rate 77 /min Betty Leiva MD Work Phone: [facility] 06-16-2022 14:15-0500 Respiratory rate 18 /min Betty Leiva MD Work Phone: [facility] 06-16-2022 14:15-0500 SaO2% (BldA) [Mass fraction] 99 % Betty Leiva MD Work Phone: [facility] 06-16-2022 14:15-0500 Systolic blood pressure 117 mm[Hg] Betty Leiva MD Work Phone: [facility] 06-16-2022 13:40-0500 Body temperature 97.5 [degF] Betty Leiva MD Work Phone: [facility] 06-16-2022 11:30-0500 Body height 160 cm Betty Leiva MD Work Phone: [facility] 06-16-2022 11:30-0500 Body mass index (BMI) [Ratio] 30.47 kg/m2 Betty Leiva MD Work Phone: [facility] 06-16-2022 11:30-0500 Body weight 78.02 kg Betty Leiva MD Work Phone: [facility] 06-06-2022 07:48-0500 Diastolic blood pressure 77 mm[Hg] Betty Leiva MD Work Phone: 5(153)454-929019 [place] [address] 06-06-2022 07:48-0500 Systolic blood pressure 117 mm[Hg] Betty Leiva MD Work Phone: 3(201)803-338919 [place] [address] 12-11-2021 16:45-0400 Heart rate 88 /min Betty Leiva MD Work Phone: 9(833)603-747819 [place] [address] 12-11-2021 16:45-0400 Respiratory rate 10 /min Betty Leiva MD Work Phone: 5(077)878-877519 [place] [address] 12-11-2021 16:45-0400 SaO2% (BldA) [Mass fraction] 97 % Betty Leiva MD Work Phone: 3(198)781-889119 [place] [address] 12-11-2021 16:30-0400 Diastolic blood pressure 71 mm[Hg] Betty Leiva MD Work Phone: 6(410)834-761219 [place] [address] 12-11-2021 16:30-0400 Systolic blood pressure 118 mm[Hg] Betty Leiva MD Work Phone: 7(814)920-298019 [place] [address] 12-11-2021 15:19-0400 Body temperature 97.3 [degF] Betty Leiva MD Work Phone: 7(598)261-566019 [place] [address] 12-11-2021 10:53-0400 Body height 157.5 cm Betty Leiva MD Work Phone: 3(569)829-353519 [place] [address] 11-14-2021 11:01-0400 Body height 160 cm Shari Martin PA-C Work Phone: 8(146)046-384819 [place] [address] 11-14-2021 11:01-0400 Body mass index (BMI) [Ratio] 28.24 kg/m2 Shari Martin PA-C Work Phone: 9(536)623-140719 [place] [address] 11-14-2021 11:01-0400 Body weight 72.3 kg Shari Martin PA-C Work Phone: [facility] 11-14-2021 11:01-0400 Diastolic blood pressure 66 mm[Hg] Shari Martin PA-C Work Phone: [facility] 11-14-2021 11:01-0400 Heart rate 71 /min Shari Luisaver PA-C Work Phone: [facility] 11-14-2021 11:01-0400 Systolic blood pressure 111 mm[Hg] Shari Martin PA-C Work Phone: [facility] 09-10-2021 15:00-0400 Body height 157.5 cm Betty Leiva MD Work Phone: 6(178)787-150440 [address] 09-10-2021 15:00-0400 Body mass index (BMI) [Ratio] 29.37 kg/m2 Betty Leiva MD Work Phone: [facility] 09-10-2021 15:00-0400 Body weight 72.85 kg Betty Leiva MD Work Phone: [facility] 09-10-2021 15:00-0400 Diastolic blood pressure 74 mm[Hg] Betty Leiva MD Work Phone: [facility] 09-10-2021 15:00-0400 Heart rate 78 /min Betty Leiva MD Work Phone: [facility] 09-10-2021 15:00-0400 Systolic blood pressure 127 mm[Hg] Betty Leiva MD Work Phone: [facility] Encounters Encounter Date Encounter Type Care Provider Facility Start: 04-30-2023 End: 04-30-2023 Subsequent hospital visit by physician Shari Martin PAC Work Phone: Imaging [facility] [place] Procedures Date Procedure Procedure Detail Performing Clinician Start: 04-30-2023 Radiologic examination knee 1/2 views Shari JARRETT Work Phone: Start: 12-12-2022 Mri any jt lower extrem w/o contrast germainel Betty Leiva MD Work Phone: Start: 07-04-2022 Radiologic examination knee 1/2 views Shari Martin PA-C Work Phone: Start: 06-06-2022 Mri any jt lower extrem w/o contrast germainel Betty Leiva MD Work Phone: Start: 12-25-2021 Radiologic exam knee complete 4/more views Betty Soto PA-C Work Phone: Start: 09-13-2021 Ct lower extremity w/o contrast material Reenadante Griggs DO Work Phone: Start: 09-10-2021 End: 09-10-2021 Bone length studies Betty Leiva MD Work Phone: History of operative procedure on knee Status post knee surgery Shari Martin PA-C Work Phone: History of operative procedure on knee Status post knee surgery Betty UREÑAC Work Phone: History of operative procedure on knee Status post knee surgery Shari Martin PA-C Work Phone: History of operative procedure on knee S/P ACL reconstruction Betty Leiva MD Work Phone: Reconstruction of joint Refe rring Provider Unknown Plan of Treatment Date Care Activity Detail Author Start: 06-30-2023 End: 06-30-2023 Patient encounter procedure 06/30/2023 1:15 PM EDT Office Visit Sports [facility] [place] [address] [place] [address] Betty Leiva MD [address] [place] [address] [facility] Start: 04-30-2023 End: 04-30-2023 Patient encounter procedure 04/30/2023 11:00 AM EST Office Visit [facility] [address] [place] [address] Shari Martin PAC [address] [place] [address] [facility] Start: 04-15-2023 Subsequent hospital visit by physician 04/15/2023 Hospital Encounter Outpatient [facility] [address] [place] [address] Betty Leiva MD [address] [place] [address] Unspecified internal derangement of knee Outpatient [facility] Immunizations Immunization Date Immunization Notes Care Provider [facility] 02-09-2015 human papilloma viru s vaccine, quadrivalent Lisette Griggs DO Work Phone: [facility] 02-09-2015 influenza, injectabl e, quadrivalent, contains preservative Lisettedante Griggs DO Work Phone: [facility] 02-09-2015 meningococcal polysaccharide (groups A, C, Y and W-135) diphtheria toxoid conjugate vaccine (MCV4P) Lisette Griggs DO Work Phone: [facility] 02-09-2015 influenza virus vacc ine, unspecified formulation Betty Leiva MD Work Phone: [facility] 02-27-2014 influenza, live, intranasal, quadrivalent Lisette Chicorelli DO Work Phone: [facility] Work Phone: 03-12-2011 human papilloma viru s vaccine, quadrivalent Lisette Chicorelli DO Work Phone: [facility] 12-10-2010 human papilloma viru s vaccine, quadrivalent Lisette Griggs DO Work Phone: [facility] Work Phone: 12-10-2010 Meningococcal, MCV4, unspecified conjugate formulation(groups A, C, Y and W-135) Lisette Griggs DO Work Phone: [facility] Work Phone: 12-10-2010 tetanus toxoid, redu inge diphtheria toxoid, and acellular pertussis vaccine, adsorbed Lisette Griggs DO Work Phone: [facility] Work Phone: 12-05-2003 diphtheria, tetanus toxoids and acellular pertussis vaccine Lisette Griggs DO Work Phone: [facility] Work Phone: 12-05-2003 measles, mumps and rubella virus vaccine Lisette Griggs DO Work Phone: [facility] Work Phone: 12-05-2003 poliovirus vaccine, inactivated Lisette Griggs DO Work Phone: [facility] Work Phone: 01-10-2000 pneumococcal conjuga te vaccine, 13 valent Lisette Griggs DO Work Phone: [facility] Work Phone: 11-09-1999 pneumococcal conjuga te vaccine, 13 valent Lisette Griggs DO Work Phone: [facility] Work Phone: 08-14-1999 diphtheria, tetanus toxoids and acellular pertussis vaccine Lisette Griggs DO Work Phone: [facility] Work Phone: 08-14-1999 haemophilus influenz ae type b vaccine, HbOC conjugate Lisette Griggs DO Work Phone: [facility] Work Phone: 05-10-1999 hepatitis B vaccine, pediatric or pediatric/adolescent dosage Lisette Griggs DO Work Phone: [facility] Work Phone: 05-10-1999 measles, mumps and rubella virus vaccine Lisette Griggs DO Work Phone: [facility] Work Phone: 05-10-1999 poliovirus vaccine, inactivated Lisette Griggs DO Work Phone: [facility] Work Phone: 05-10-1999 varicella virus vaccine Lisettedante Griggs DO Work Phone: [facility] Work Phone: 02-07-1999 hepatitis B vaccine, pediatric or pediatric/adolescent dosage Lisette Griggs DO Work Phone: [facility] Work Phone: 1998 diphtheria, tetanus toxoids and acellular pertussis vaccine Lisette Griggs DO Work Phone: [facility] Work Phone: 1998 haemophilus influenz ae type b vaccine, HbOC conjugate Lisette [facility] DO Work Phone: [facility] Work Phone: 1998 diphtheria, tetanus toxoids and acellular pertussis vaccine Lisette Griggs DO Work Phone: [facility] Work Phone: 1998 haemophilus influenz ae type b vaccine, HbOC conjugate Lisette Griggs DO Work Phone: [facility] Work Phone: 1998 poliovirus vaccine, inactivated Lisette Griggs DO Work Phone: [facility] Work Phone: 1998 diphtheria, tetanus toxoids and acellular pertussis vaccine Lisette Griggs DO Work Phone: [facility] Work Phone: 1998 haemophilus influenz ae type b vaccine, HbOC conjugate Lisette Griggs DO Work Phone: [facility] Work Phone: 1998 poliovirus vaccine, inactivated Lisette Griggs DO Work Phone: [facility] Work Phone: 1998 hepatitis B vaccine, pediatric or pediatric/adolescent dosage Lisettedante Griggs DO Work Phone: [facility] Work Phone: 1998 hepatitis B vaccine, pediatric or pediatric/adolescent dosage Lisettedante Griggs DO Work Phone: [facility] Work Phone: Payers Date Payer Category Payer Unknown [id number] 2014 Unknown [employer] PPO OOS [id number] 2014-Present [phone] [facility] [id number] [place] [address] PPO [id number] 2014 Unknown [id number] 1998 Unknown [id number] [id number] 1998 Unknown [id number] [id number] 1998 Unknown [id number] [id number] 1998 Unknown [id number] [id number] 1998 Unknown [id number] [id number] 1998 Unknown [id number] [id number] 1998 Unknown [id number] [id number] 1998 Unknown [id number] [id number] 1998 Unknown [id number] [id number] 1998 Unknown [id number] [id number] 1998 Unknown [id number] [id number] 1998 Unknown [id number] 2.16.840.1.588329.3.579.2.594 1998 Unknown [id number] [id number] 1998 Unknown [id number] [id number] 1998 Unknown [id number] [id number] 1998 Unknown [id number] [id number] 1998 Unknown [id number] [id number] 1998 Unknown [id number] [id number] 1998 Unknown [id number] [id number] 1998 Unknown [id number] Self-pay Social History Date Type Detail Facility Start: 03-13-2014 End: 12-11-2021 Tobacco smoking status LAIS Never smoked tobacco [facility] Start: 08-29-2021 Alcohol intake Not Asked [facility] Start: 2000 Sex Assigned At Not on file [facility] Start: 08-04-2021 End: 06-06-2022 Exposure to SARS-CoV-2 (event) Not sure [facility] Tobacco smoking stat us NHIS Tobacco smoking consumption unknown [facility] Start: 03-13-2014 End: 12-11-2021 Tobacco use and exposure Smokeless tobacco non-user [facility] Start: 12-11-2021 End: 03-04-2022 Alcohol intake Lifetime non-drinker (finding) [facility] Start: 06-05-2022 End: 04-30-2023 Alcohol intake Ex-drinker (finding) [facility] Start: 05-26-2022 End: 06-16-2022 Exposure to SARS-CoV-2 (event) Unable to assess [facility] Start: 12-09-2022 End: 04-30-2023 Exercises regularly Exercises regularly FN-Ojvefuhbuvjn-Yvqy hw ood [id number] DO Work Phone: Start: 12-09-2022 End: 04-30-2023 Tobacco use panel [facility] Medical Equipment Procedure Code Equipment Code Equipment Origin al Text Equipment Identifier Dates Screw Interferen ce Peek 23mm 9mm Tibial Intrafix Advance - [id number] Start: 12-11-2021 Filler Bone Void 2.5cc Dbx Allograft Putty Freeze Dry - [id number] Start: 04-15-2023 Clinical Notes 08-29-2021 to 04-30-2023 KOLBY Bell - 04/30/2023 11:00 AM ESTOp Note - Betty Leiva MD - 04/15/2023 9:35 AM ESTBrief Op Note - Betty Leiva MD - 04/15/2023 8:05 AM ESTDischarge Instructions Note Date & Type Note Facility 04-30-2023 History of Presen t illness Narrative Chief Complaint Patient presents with Left Knee - Post Op Visit Post op LEFT KNEE--diagnostic arthroscopy DOS 04/15/2023 Knee feels good. Denies N/T no new mechanical symptoms. PT 2x week HEP 3x day everyday patient states they are 70% better want strength back and walking normal Sutures and staple looked good and removed PROCEDURES LEFT KNEE--diagnostic arthroscopy - Left, Removal Hardware - Left, Arthroscopy Knee W/ Chondroplasty/abrasion Arthroplasty - Left, and Excision Bone Partial Femur Proximal Fibula Tibia - Left on 04/15/2023 CURRENT CONDITION Meri is seen for postoperative follow up now 2 week(s) postop. Formal physical therapy is in progress. Narcotic pain medication is not being used. Anticoagulation medication is being used. Current problems or concerns: doing well with no complaints at this time. She denies any fevers, chills, night sweats, nausea, vomiting. She denies excessive numbness, tingling, calf pain, chest pain, shortness of breath. She denies erythema, warmth, excessive drainage from the surgical site. PHYSICAL EXAM Pleasant Wt Readings from Last 1 Encounters: 04/15/23 80.7 kg (178 lb) Ht Readings from Last 1 Encounters: 04/15/23 1.6 m (5' 3 ) 22 y.o. female in no acute distress. Alert and oriented x 3. GAIT: full weight bearing as tolerated Left Lower Extremity: Sutures were removed and steri-strips applied. The incisions are benign--clean, dry, and intact with no erythema, warmth, purulent drainage, or other signs of infection. 2+ distal pulses and sensation intact. Postsurgical abnormal contour is present. Knee effusion: 1+ Range Of Motion: 0-120 Quad Tone: fair Calf Tenderness: No Xrays obtained and reviewed in the office today: Yes. They demonstrate interval healing of osteotomy or graft. CONTRALATERAL EXAM Right Knee Exam: No skin lesions, erythema, or warmth. No joint effusion. No joint line tenderness. Negative Kimberley. Ligaments stable. Quad tone good. ROM 0-140 ASSESSMENT 15 days status post: LEFT KNEE--diagnostic arthroscopy - Left, Removal Hardware - Left, Arthroscopy Knee W/ Chondroplasty/abrasion Arthroplasty - Left, and Excision Bone Partial Femur Proximal Fibula Tibia - Left PLAN -Procedure Review: The arthroscopic pictures and surgical procedures were reviewed in detail. All questions were answered. -Wound Care: We cautioned on the signs/symptoms of infection to be aware of. Instructed patient to allow steri-strips to fall off on their own. Instructed the patient on no bathing, hot tubs, or water immersion. -DVT Prophylaxis: We cautioned on signs/symptoms of DVT, and gave instructions to continue wearing ALFREDA hose for one more week. -Pain Management: We advised use of pain medication as needed. We stressed the importance of no alcohol, Tylenol products, or other pain medications while on prescribed pain medication. -Physical Therapy: We stressed the importance of continuing home exercises and formal PT in accordance with [facility] protocol. -Swelling Control: We stressed the importance of swelling control with RICE treatment as needed. -Follow Up: Return for follow up in 4 weeks. -CPM - No -Imaging needed at next visit - No. documented in this encounter [facility] 04-15-2023 Miscellaneous Notes Operative Report DATE PERFORMED: 04/15/2023 PREOPERATIVE DIAGNOSES: 1. Left knee internal derangement. 2. Symptomatic hardware. POSTOPERATIVE DIAGNOSES: 1. Left knee internal derangement. 2. Symptomatic hardware. PROCEDURES: 1. Left knee arthroscopy with loose body removal, medial compartment. 2. Chondroplasty, lateral compartment. 3. Excision of bone, tibia and femur. 4. Hardware removal, tibia. SURGEON(S): Betty Leiva MD. ENGINEERING PROGRAM ANALYST: Valentina Rojas MD, orthopedic resident. ANESTHESIA: General. ESTIMATED BLOOD LOSS: None. COMPLICATIONS: None. DISPOSITION: Stable. INDICATIONS: Meri is a pleasant 22-year-old female who has had a previous revision ACL reconstruction. She has been doing on and off well, stable knee, but significant pain with terminal extension, pinching. She has had 1 previous surgery with removal of osteophyte which helped her tremendously, but then the pain came back. We determined to remove some of the tibial hardware. It just seemed like it was kind of pointing toward the joint potentially giving her some trouble. Do a notchplasty and see if that can help with some of the pinching and take a good look in the knee. She is in agreement with this plan. The risks and benefits of the procedure were fully explained to her. Those risks include, but are not limited to, infection, neurovascular injury, continued progressive tear, need for surgery, DVT, PE, loss of limb, loss of life. She understood all these risks and wished to proceed. Informed consent was obtained. DESCRIPTION OF PROCEDURE: The patient was identified in the holding area. The left lower extremity was marked. Given preoperative antibiotics, and taken to the operating room and placed on the table in supine position. All bony prominences were well padded. The anesthesiologist performed a successful general anesthetic for the remainder of the case. A tourniquet was placed high on the left thigh as a lateral post. Left lower extremity was then prepped and draped in the usual sterile fashion. 20 cc of 0.5% lidocaine with epi was injected in the portal sites and the knee joint. Standard arthroscopic portals were made. Arthroscopy of the knee then followed. She had a normal suprapatellar pouch and medial and lateral gutters. Patellofemoral articulation was normal. Going to the medial compartment, the meniscus was normal as we kind of probed and kind of looked in the anterior portion initially looking for any pinching. We did find a suture, probably from 1 of her previous repairs, that was trapped underneath the meniscus. Hard to know if this was maybe causing some of the pinching pain, but we did remove this. It was a good centimeter in length of suture, and in that area, she did have a small osteophyte as well, so we did an excision of some of the bone of the tibia in this region. In the notch, the ACL was completely intact, but it was kind of overstuffed within the notch. We did do a notchplasty giving excellent room for the ACL so that if this was causing any impingement this type of symptom would be completely gone. We could not see her femoral screw which was buried in the bone, and we did not feel like that had to be removed. In the lateral compartment, meniscus repair posteriorly was repaired. She did have chondrocalcinosis which was evident; again, some of this in the front part of the tibia. This was resected. At that point, we did a 2nd and 3rd arthroscopy to make sure no other pathology was seen. This was confirmed. Then we made a roughly 3 cm incision. We were able to find the tibial screw. This was kind of prominent. We removed it. We debrided with the curette and then filled in with some demineralized bone matrix and then closed in layers of 0 Vicryl, 2-0 Vicryl, scooter in the skin site and nylon in the portal sites. A sterile dressing was applied as well as an Alber bandage and a cooling unit. Awakened from general anesthesia in stable condition. No complications in the case. POSTOPERATIVE PLAN: Will need DVT prophylaxis. Will be weightbearing as tolerated. Hopefully, that will take care of some of pain and going through some rehabilitation. Dictated By: MD Betty Mliler MD ATTENDING DCF/MedQ JOB: [id number] DOC: [id number] Meri Mejia ([id number]) PRE OPERATIVE DIAGNOSIS Unspecified internal derangement of knee [M23.90] Internal derangement of left knee [M23.92] POST OPERATIVE DIAGNOSIS Post-Op Diagnosis Codes: * Loose body in knee, left [M23.42] * Failed orthopedic implant, initial encounter [T84.498A] * Unspecified internal derangement of knee [M23.90] * Internal derangement of left knee [M23.92] PROCEDURE PERFORMED Procedure(s) (LRB): LEFT KNEE--diagnostic arthroscopy (Left) REMOVAL HARDWARE (Left) ARTHROSCOPY KNEE W/ CHONDROPLASTY/ABRASION ARTHROPLASTY (Left) EXCISION BONE PARTIAL FEMUR PROXIMAL FIBULA TIBIA (Left) PRIMARY CLOSURE Yes INTRAOPERATIVE FINDINGS No significant abnormalities SURGEON Surgeon(s) and Role: * Betty Leiva MD - Primary ANESTHESIOLOGIST Anesthesiologist: Rex Azevedo MD CLOUD ADMINISTRATOR: Sherin Cr APRN-CLOUD ADMINISTRATOR SURGICAL STAFF Ecommerce Marketing Manager: Josselin Ruiz RN Scrub Person: Jocelyn Reddy Resident Assisting: Valentina Rojas MD COMPLICATIONS None ESTIMATED BLOOD LOSS Minimal SPECIMENS No specimen sent * No specimens in log * Betty Leiva MD April 15, 2023 8:05 AM documented in this encounter [facility] 04-15-2023 Surgery Postoperative evaluation and management note Operative Report DATE PERFORMED: 04/15/2023 PREOPERATIVE DIAGNOSES: 1. Left knee internal derangement. 2. Symptomatic hardware. POSTOPERATIVE DIAGNOSES: 1. Left knee internal derangement. 2. Symptomatic hardware. PROCEDURES: 1. Left knee arthroscopy with loose body removal, medial compartment. 2. Chondroplasty, lateral compartment. 3. Excision of bone, tibia and femur. 4. Hardware removal, tibia. SURGEON(S): Betty Leiva MD. ENGINEERING PROGRAM ANALYST: Valentina Rojas MD, orthopedic resident. ANESTHESIA: General. ESTIMATED BLOOD LOSS: None. COMPLICATIONS: None. DISPOSITION: Stable. INDICATIONS: Meri is a pleasant 22-year-old female who has had a previous revision ACL reconstruction. She has been doing on and off well, stable knee, but significant pain with terminal extension, pinching. She has had 1 previous surgery with removal of osteophyte which helped her tremendously, but then the pain came back. We determined to remove some of the tibial hardware. It just seemed like it was kind of pointing toward the joint potentially giving her some trouble. Do a notchplasty and see if that can help with some of the pinching and take a good look in the knee. She is in agreement with this plan. The risks and benefits of the procedure were fully explained to her. Those risks include, but are not limited to, infection, neurovascular injury, continued progressive tear, need for surgery, DVT, PE, loss of limb, loss of life. She understood all these risks and wished to proceed. Informed consent was obtained. DESCRIPTION OF PROCEDURE: The patient was identified in the holding area. The left lower extremity was marked. Given preoperative antibiotics, and taken to the operating room and placed on the table in supine position. All bony prominences were well padded. The anesthesiologist performed a successful general anesthetic for the remainder of the case. A tourniquet was placed high on the left thigh as a lateral post. Left lower extremity was then prepped and draped in the usual sterile fashion. 20 cc of 0.5% lidocaine with epi was injected in the portal sites and the knee joint. Standard arthroscopic portals were made. Arthroscopy of the knee then followed. She had a normal suprapatellar pouch and medial and lateral gutters. Patellofemoral articulation was normal. Going to the medial compartment, the meniscus was normal as we kind of probed and kind of looked in the anterior portion initially looking for any pinching. We did find a suture, probably from 1 of her previous repairs, that was trapped underneath the meniscus. Hard to know if this was maybe causing some of the pinching pain, but we did remove this. It was a good centimeter in length of suture, and in that area, she did have a small osteophyte as well, so we did an excision of some of the bone of the tibia in this region. In the notch, the ACL was completely intact, but it was kind of overstuffed within the notch. We did do a notchplasty giving excellent room for the ACL so that if this was causing any impingement this type of symptom would be completely gone. We could not see her femoral screw which was buried in the bone, and we did not feel like that had to be removed. In the lateral compartment, meniscus repair posteriorly was repaired. She did have chondrocalcinosis which was evident; again, some of this in the front part of the tibia. This was resected. At that point, we did a 2nd and 3rd arthroscopy to make sure no other pathology was seen. This was confirmed. Then we made a roughly 3 cm incision. We were able to find the tibial screw. This was kind of prominent. We removed it. We debrided with the curette and then filled in with some demineralized bone matrix and then closed in layers of 0 Vicryl, 2-0 Vicryl, scooter in the skin site and nylon in the portal sites. A sterile dressing was applied as well as an Alber bandage and a cooling unit. Awakened from general anesthesia in stable condition. No complications in the case. POSTOPERATIVE PLAN: Will need DVT prophylaxis. Will be weightbearing as tolerated. Hopefully, that will take care of some of pain and going through some rehabilitation. Dictated By: MD Betty Miller MD ATTENDING DCF/MedQ JOB: [id number] DOC: [id number] [facility] 04-15-2023 History of Presen t illness Narrative 9:11 AM Reviewed AVS, discharge instructions, iceman, prescriptions, alfreda hose, follow-up appointment, and when to call the office with patient and patient's grandmother. All questions answered. Peripheral IV access removed. Prescriptions sent to patient's pharmacy. Patient states readiness for discharge. Chrissy Avila RN documented in this encounter [facility] 04-15-2023 Nurse Surgical operation note Patient transported to PACU by JYOTHI and Inderjit RN; bedside handoff report given to HENNY Lowe [facility] 04-15-2023 Nurse Note Patient transported to PACU by JYOTHI and Inderjit RN; bedside handoff report given to HENNY Lowe documented in this encounter [facility] 04-15-2023 Surgery Postoperative evaluation and management note Meri Mejia ([id number]) PRE OPERATIVE DIAGNOSIS Unspecified internal derangement of knee [M23.90] Internal derangement of left knee [M23.92] POST OPERATIVE DIAGNOSIS Post-Op Diagnosis Codes: * Loose body in knee, left [M23.42] * Failed orthopedic implant, initial encounter [T84.498A] * Unspecified internal derangement of knee [M23.90] * Internal derangement of left knee [M23.92] PROCEDURE PERFORMED Procedure(s) (LRB): LEFT KNEE--diagnostic arthroscopy (Left) REMOVAL HARDWARE (Left) ARTHROSCOPY KNEE W/ CHONDROPLASTY/ABRASION ARTHROPLASTY (Left) EXCISION BONE PARTIAL FEMUR PROXIMAL FIBULA TIBIA (Left) PRIMARY CLOSURE Yes INTRAOPERATIVE FINDINGS No significant abnormalities SURGEON Surgeon(s) and Role: * Betty Leiva MD - Primary ANESTHESIOLOGIST Anesthesiologist: Rex Azevedo MD CLOUD ADMINISTRATOR: Sherin Cr APRN-CLOUD ADMINISTRATOR SURGICAL STAFF Ecommerce Marketing Manager: oJsselin Ruiz RN Scrub Person: Jocelyn Reddy Resident Assisting: Valentina Rojas MD COMPLICATIONS None ESTIMATED BLOOD LOSS Minimal SPECIMENS No specimen sent * No specimens in log * Betty Leiva MD April 15, 2023 8:05 AM [facility] 04-15-2023 History and physical note PERIOPERATIVE SURGICAL HISTORY AND PHYSICAL UPDATE Pre-op Diagnoses: Unspecified internal derangement of knee [M23.90] Internal derangement of left knee [M23.92] Procedure(s): LEFT KNEE--diagnostic arthroscopy REMOVAL HARDWARE Surgeon(s): Surgeon(s) and Role: * Betty Leiva MD - Primary History and Physical Update: not currently . I have reviewed Meri Mejia's medical, surgical and other pertinent history, and I have updated the medication and allergy information in the computerized patient record. I have examined the patient, reviewed the previous H&P completed on date (03/24/23) and there are no changes. Today's surgical history and physical update was completed by Valentina Rojas MD, 04/15/2023, 6:26 AM. [facility] 04-15-2023 History and physical note PERIOPERATIVE SURGICAL HISTORY AND PHYSICAL UPDATE Pre-op Diagnoses: Unspecified internal derangement of knee [M23.90] Internal derangement of left knee [M23.92] Procedure(s): LEFT KNEE--diagnostic arthroscopy REMOVAL HARDWARE Surgeon(s): Surgeon(s) and Role: * Betty Leiva MD - Primary History and Physical Update: not currently . I have reviewed Meri Mejia's medical, surgical and other pertinent history, and I have updated the medication and allergy information in the computerized patient record. I have examined the patient, reviewed the previous H&P completed on date (03/24/23) and there are no changes. Today's surgical history and physical update was completed by Valentina Rojas MD, 04/15/2023, 6:26 AM. documented in this encounter [facility] 04-14-2023 Hospital Discharg e instructions Valentina Rojas MD - 04/14/2023 2:54 PM EST Home Care After Ambulatory Surgery The following instructions will help you care for yourself, or be cared for upon your return home today. These are guidelines for your care right after surgery only. Diet: Drink plenty of liquids and eat light meals today. Start your regular diet tomorrow or as tolerated. Anesthesia Precautions & Expectations: After anesthesia, rest for [address], drink alcoholic beverages or make any important decisions during this time. General anesthesia may cause a sore throat, jaw discomfort or muscle aches. These symptoms can last for one or two days. What to Expect after surgery: Minimal drainage from the incision. Mild to moderate discomfort and tenderness. Call your Doctor for: Pain not relieved with medicines. Increased amounts of redness, swelling, or any drainage (pus) from the incision. Temperature above 101 degrees. Nausea and vomiting not resolved in 24 hours. YOUR POSTOPERATIVE APPOINTMENT Call your Surgeon's office to make a follow up appointment if you do not have one already scheduled. POLARCARE DEVICE 20 minutes on, 1 hour off, 4-6 sessions per day. Do not apply directly to skin to avoid frostbite WEIGHT BEARING STATUS WEIGHT BEARING STATUS: Full weight bearing - wean off of crutches when you are comfortable to do so BRACE STATUS BRACE STATUS: Hinge knee brace- NO CPM MACHINE CPM MACHINE: No BLOOD CLOT PREVENTION Eliquis 2.5 mg twice daily for 4-6 weeks OR Aspirin 325 mg once daily for 6-12 weeks Based upon your interest in the ELIQUIS (apixaban) Virtual Affordability program and completion of the 'Virtual Affordability Request Form', attached below is the unique URL for your hospital/system. [email or web address] Please utilize the unique URL provided to access an electronic version of the following: Eliquis Copay Card Eliquis Pre-Activated 30-day Free Trial Offer WOUND CARE Keep dressings on for 3 days after surgery. You may then remove and apply bandages over incisions. Some bleeding after surgery is normal--do not be alarmed if some soaks through dressings. To avoid infection keep your incisions clean and dry. After the third day you may shower if you cover the incisions with some type of protection (like a plastic bag or saran wrap). No bathing, hot tubs, or water immersion until sutures are removed and scabs have fully healed. Do not remove your sutures--they will be removed in the clinic at the appropriate time. PAIN MANAGEMENT You will receive a prescription for pain medication the day of surgery--take as directed. Common side effects are nausea, drowsiness, and constipation. Consider taking the medication with food. Try an [id number] laxative for constipation if necessary. Do not operate a motor vehicle or heavy machinery while on narcotic pain medication. When taking you pain medication do not consume alcohol or take any other narcotic pain medications or sedatives You should take Tylenol (1000mg every 6 hours) and ibuprofen (400 mg every 6 hours with food) to minimize that amount of oxycodone you need to take. NSAIDs are ok to take with aspirin or the eliquis as long as the patient does not have any GI history of upset or stomach ulcer. NSAID-type medications have two very important potential side effects: gastrointestinal irritation including hemorrhage and renal injuries. Please take the medication with food and stop if you experience any GI upset (vomiting, abdominal pain or black/bloody stools) ICING technique Ice with either the cold pack or the ice man (whichever is applied or given day of surgery) 20min on and 2hrs off. Please make sure to have a barrier between your skin and the ice to protect your skin/incision from solomon bite. PHYSICAL THERAPY If you were given home exercises to do, begin these 24 hours after surgery. If indicated, you may receive a prescription for physical therapy. Therapy appointments are usually set up prior to surgery. If you do not have a physical therapy appointment scheduled, please call the office to get your appointment scheduled. Therapy usually begins 3-5 days after surgery. If you are not doing PT at an [facility] facility, please have your therapist contact our PT department ([phone]) for a protocol. A knee arthroscopy does not require a protocol. Stiffness and discomfort are common after surgery. Try to continue your exercises as they are important for recovery and may help your symptoms. ALFREDA HOSE If indicated, you may receive ALFREDA hose stockings the day of surgery. These are used to improve circulation and to help prevent blood clots. If this applies to you, you will begin wearing one stocking on you non-operative leg in the pre-op area. Add the other stocking to your operative leg after you have removed the dressing on the third day after surgery. Wear at all times except when bathing. Take care that they are worn smoothly and are not bunching up behind your knee or thigh. They can be laundered in cold water with mild detergent, 15-20 minutes on low heat or air dry. These will typically be worn for 2 weeks following surgery. OTHER IMPORTANT INSTRUCTIONS Avoid placing a pillow under your knee for extended periods of time, especially for sleeping at night--it will make getting your full extension back very difficult and more painful. You may prop something under your ankle to help with extension. Use your crutches as directed paying close attention to your prescribed weight bearing status. Try to keep your leg elevated and ice consistently--this will help some with pain and swelling. Avoid long periods of sitting, bed rest, or travel for the first two weeks after surgery as this can contribute to developing blood clots. Do not drive until cleared by your physician. The effects of anesthesia may linger after your surgery and can cause drowsiness, nausea, and vomiting. Do not make important decisions within the next 24 hours. EMERGENCY CARE Contact your Surgeon's office if you experience any of the following: Calf pain, chest pain, or shortness of breath Fever over 101 degrees (low-grade fever after surgery is not uncommon) Spreading redness, excessive pus-like or bloody drainage from incisions Painful swelling or numbness Unrelenting pain Excessive nausea or vomting For after-hours emergencies--call the main office number at [phone] or [phone] to contact the on-call orthopedic physician. If you experience a life-threatening emergency, go to the nearest emergency room as soon as possible. Knee Team Surgeon contact info: Dr Betty Leiva Office# [phone] documented in this encounter [facility] 03-24-2023 History of Presen t illness Narrative Chief Complaint Patient presents with Left Knee - Pre-operative Evaluation PRE OP L knee arthroscopy with debridement and hardware removal with Dr Leiva DOS 04/15/2023 Denies changes in condition of knee or new traumas. Would like to proceed with surgery. HISTORY OF PRESENT ILLNESS Meri is a 22 y.o. female. Presents for follow-up of Left knee(s). To review, patient had a revision ACL reconstruction and meniscal repair, lateral extra-articular tenodesis. C/b persistent pain, ongoing effusions. Underwent surgery with Dr. Leiva on 06/16/22 for left AKS, removal of loose bodies, partial meniscectomy, synovectomy. Last seen in clinic 01/23/23. Continues to have debilitating eft knee pain, intermittent swelling. Continues to use dynasplint, working on strengthening, interested in proceeding with surgery in April as plan for diagnostic AKS, potential notchplasty, removal of tibial screw. Has not been very active these last 2 years due to her injury and would like to get back to being active. Has been working on extension. 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 REVIEW OF SYSTEMS Constitutional: Negative for fever and chills. Skin: Negative for rash and skin lesions. HENT: Negative for nosebleeds and sore throat. Eyes: Negative for blurred vision and double vision. Cardiovascular: Negative for chest pain and dyspnea on exertion. Respiratory: Negative for cough. Is not experiencing shortness of breath. Gastrointestinal: Negative for nausea and vomiting. Musculoskeletal: Positive for left knee pain, swelling Neurological: Negative for tingling and headaches. Psychiatric: Negative for hallucinations. The patient does not have insomnia. Lymph/Heme: Negative for bruises/bleeds easily and lymph node swelling. Endocrine: Negative for hot flashes and sweats. PHYSICAL EXAM Pleasant 22 y.o. year old female No acute distress. Alert and oriented x 3. Antalgic gait: No Pain with deep knee bend: No Bilateral lower extremities are neurovascularly intact with symmetric light touch sensation and distal pulses. Right Knee Exam: No skin lesions, erythema, or warmth. No joint effusion. No joint line tenderness. Negative Kimberley. Ligaments stable. Quad tone good. ROM 0-135 Left Knee Exam: No skin lesions, erythema, or warmth. Effusion: 1+ Range Of Motion: 3-135 Hyperextension Pain: Positive Hyperflexion Pain: Negative Kimberley: Negative Medial Joint Line Tenderness: Negative Lateral Joint Line Tenderness: Negative Anterior Drawer: Negative Posterior Drawer: Negative Ottoniel: Negative Pivot Shift: Negative Valgus Stress: Negative Varus Stress: Negative REVIEW OF IMAGING Xrays reviewed today: XR left knee with intact ACL button MRI available for review today: Yes MR independently reviewed No bone piece, has some edema in graft but intact No other significant issues anteriorly ASSESSMENT 22F s/p left AKS with partial meniscectomy, loose/foreign body removal, synovectomy (DOS 06/16/22). PLAN -Diagnosis and treatment options discussed in detail today -Given failure of conservative measures, will proceed with diagnostic left AKS with notchplasty and removal of hardware (tibial screw) -Consent obtained in office today Patient was seen and evaluated with the Sports Medicine Fellow/Resident at today's visit. I performed all essential elements of the history and physical exam at today's visit. I have confirmed the diagnosis at today's visit. I have determined the plan of care for today's visit. Please refer to the fellow/resident's note for further details from today's visit. I have reviewed the note following the visit have added edits as appropriate to my evaluation and plan of care. The diagnoses for today's visit include: ICD-10-CM 1. Internal derangement of left knee M23.92 2. Chronic pain of left knee M25.562 G89.29 3. Failed orthopedic implant, initial encounter T84.498A Ready for surgery. Plan removal of screws, notchplasty The risks and benefits of the procedure were fully explained, including but not limited to infection, neurovascular injury, continued pain, arthritis, stiffness, need for further surgery, re-injury re-tear, DVT, PE, and loss of limb or life. The patient understands all the risks and does wish to proceed. We will try to do this in a timely fashion. documented in this encounter [facility] 01-09-2023 History of Presen t illness Narrative Chief Complaint: HPI: 22 y.o. female c/o L knee pain since 2011 - tore ACL and Meniscus, Pain located diffuse and deep. Described as pinching, agg with standing. Denies n/t, Reports clicking PHx of Sx - ACL and Meniscus, had 4 previous surgeries, CSI in October with no relief, Tx: ibu, exercise, ice, and PT Review of Systems: No fevers, chills, wt loss or night pain. A comprehensive review of systems was negative except for what is noted in the history of present illness. PHYSICAL EXAMINATION 1-GENERAL/CONSTITUTIONAL =No acute distress. 2-MENTAL STATUS/PSYCHIATRIC = Appropriate mood and affect. 3-NEUROLOGIC= normal strength in affected limb 4-MUSCULOSKELETAL= no effusion or instability. 5-SKIN = No lesions Imaging: I independently interpreted diagnostic images today and reviewed the report. I agree with the results report; on my independent review of images, the most relevant findings are small subchondral injury I spent time discussing these findings with the patient. Assessment and Plan: Left knee pain We discussed the diagnosis, prognosis, expected recovery / progression with our treatment plan, and mitigation strategies. Multi factorial PTOA + fibrosis We discussed the role of PRP for the patient's condition (PTOA). We discussed risks, benefits, expectations for time to improvement (6-12 weeks), immediate reactions like pain / swelling, direct cost to patient, return to play plan, and need for repeat injections. Moderate risk given blood processing requirements. Patient expresses understanding. PATIENT EDUCATION: Ready to learn, no apparent learning barriers were identified; learning preferences include listening. Discussed diagnosis and treatment plan; patient expressed understanding of the content. Ref by Cali documented in this encounter [facility] 01-09-2023 Instructions Nora Moreno ATC - 01/09/2023 10:00 AM EDT Left knee PRP Bring a Facility Maintenance Helper No NSAIDs (ibuprofen, motrin, meloxicam, aleve, naproxen etc) for 7 days prior to procedure Discontinue fish oil (if using supplement) for 7 days prior to procedure Please refrain from exercise the day before and the day of the procedure Make sure you are well hydrated the day of your procedure. Do not over-hydrate. No alcohol 2 days prior Aspirin: if taking because of heart disease or stroke, keep taking. If taking only preventative (never told by doctor to take it) stop for 10 days All other supplements are ok to continue documented in this encounter [facility] 12-09-2022 History of Presen t illness Narrative Chief Complaint Patient presents with Left Knee - Follow-up s/p 5m 23d L AKS with loose body removal, partial menisectomy, resection of dome of tibal and femur, limited synovectomy (DOS 06/16/22). Notes pain and mechanical symptoms that began ~8w PO. Feels like this pain is the same that she was having prior to Sx PROCEDURES Arthroscopy Knee W/ Meniscectomy - Left, Arthroscopy Knee W/ Fb Removal - Left, Arthroscopy Knee W/ Synovectomy, and Excision Bone Partial Femur Proximal Fibula Tibia - Left on 06/16/2022 CURRENT CONDITION Meri is seen for postoperative follow up now 6 mo postop. Formal physical therapy is in progress. HEP. Current problems or concerns: Since her last visit shortly afterwards she felt increasing pain and pinching in the front part of the knee and then difficulty with full terminal extension. She is quite frustrated with this her therapist from an outside institution referred her for 2nd opinions [address] Morris from [facility] who talked about a D sloping osteotomy. The 2nd with Dr. Shen's from [place] who gave her cortisone shot. She really prefers her care here. She is quite frustrated as she feels like her knee is stable but she has pain. Most her pain she describes as pinching right up towards the front worse with terminal extension in her extension has gotten worse over time. She denies any fevers, chills, night sweats, nausea, vomiting. She denies excessive numbness, tingling, calf pain, chest pain, shortness of breath. She denies erythema, warmth, excessive drainage from the surgical site. PHYSICAL EXAM Pleasant Wt Readings from Last 1 Encounters: 06/16/22 78 kg (172 lb) Ht Readings from Last 1 Encounters: 06/16/22 1.6 m (5' 3 ) 22 y.o. female in no acute distress. Alert and oriented x 3. GAIT: full weight bearing as tolerated Left Lower Extremity: The incisions are benign--clean, dry, and intact with no erythema, warmth, purulent drainage, or other signs of infection. 2+ distal pulses and sensation intact. Postsurgical abnormal contour is present. Knee effusion: 1+ Range Of Motion: 5-140 Quad Tone: fair Calf Tenderness: No Xrays obtained and reviewed in the office today: No. CONTRALATERAL EXAM Right Knee Exam: No skin lesions, erythema, or warmth. No joint effusion. No joint line tenderness. Negative Kimberley. Ligaments stable. Quad tone good. ROM 0-140 ASSESSMENT 6 mo status post: Arthroscopy Knee W/ Meniscectomy - Left, Arthroscopy Knee W/ Fb Removal - Left, Arthroscopy Knee W/ Synovectomy, and Excision Bone Partial Femur Proximal Fibula Tibia - Left PLAN It is difficult to know the exact cause of some of her anterior knee pain. We discussed that she does have some increased slope though for a first-time revision I think the surgery that we did was appropriate and she does feel more stable. In looking at the previous MRI there was a small bony piece which we did resect the last surgery. I am wondering if this has come back. For that reason I do recommend an MRI to further evaluate this. If that bony pieces come back and I would recommend removing it potential notchplasty see if that can improve her extension potential removing the tibial screw as well. She understands her knee will never be perfect due to all of her meniscus pathology and cartilage damage that she had but she would like to have more relief with her activities of daily living especially with her job. We will have a telephone visit after the MRI is obtained to discuss next steps. She is in agreement this plan. All her questions were answered -Pain Management: We advised use of pain medication as needed. We stressed the importance of no alcohol, Tylenol products, or other pain medications while on prescribed pain medication. -Physical Therapy: We stressed the importance of continuing home exercises and formal PT in accordance with AKS protocol. New PT prescription provided. -Swelling Control: We stressed the importance of swelling control with RICE treatment as needed. -She is going to follow up with her PCP for continued DVT management -Follow Up: Return for follow up after MR documented in this encounter [facility] 08-19-2022 History of Presen t illness Narrative Chief Complaint Patient presents with Left Knee - Condition Update f/u 9w 1d s/p L AKS with loose body removal, partial menisectomy, resection of dome of tibal and femur, limited synovectomy (DOS 06/16/22). Progressing as expected, occ stiffness. She stopped PT, she is doing HEP daily. PROCEDURES Arthroscopy Knee W/ Meniscectomy - Left, Arthroscopy Knee W/ Fb Removal - Left, Arthroscopy Knee W/ Synovectomy, and Excision Bone Partial Femur Proximal Fibula Tibia - Left on 06/16/2022 CURRENT CONDITION Meri is seen for postoperative follow up now 9 weeks postop. Overall, she is doing well. She is doing HEP with emphasis on quad strengthening. Hoping to continue to improve strength. Formal physical therapy is in progress. HEP. Narcotic pain medication is not being used. Anticoagulation medication is being used. Current problems or concerns: Strength of quad. She denies any fevers, chills, night sweats, nausea, vomiting. She denies excessive numbness, tingling, calf pain, chest pain, shortness of breath. She denies erythema, warmth, excessive drainage from the surgical site. PHYSICAL EXAM Pleasant Wt Readings from Last 1 Encounters: 06/16/22 78 kg (172 lb) Ht Readings from Last 1 Encounters: 06/16/22 1.6 m (5' 3 ) 22 y.o. female in no acute distress. Alert and oriented x 3. GAIT: full weight bearing as tolerated Left Lower Extremity: The incisions are benign--clean, dry, and intact with no erythema, warmth, purulent drainage, or other signs of infection. 2+ distal pulses and sensation intact. Postsurgical abnormal contour is present. Knee effusion: 1+ Range Of Motion: 0-140 Quad Tone: fair Calf Tenderness: No Xrays obtained and reviewed in the office today: No. CONTRALATERAL EXAM Right Knee Exam: No skin lesions, erythema, or warmth. No joint effusion. No joint line tenderness. Negative Kimberley. Ligaments stable. Quad tone good. ROM 0-140 ASSESSMENT 9 weeks status post: Arthroscopy Knee W/ Meniscectomy - Left, Arthroscopy Knee W/ Fb Removal - Left, Arthroscopy Knee W/ Synovectomy, and Excision Bone Partial Femur Proximal Fibula Tibia - Left PLAN -Pain Management: We advised use of pain medication as needed. We stressed the importance of no alcohol, Tylenol products, or other pain medications while on prescribed pain medication. -Physical Therapy: We stressed the importance of continuing home exercises and formal PT in accordance with AKS protocol. New PT prescription provided. -Swelling Control: We stressed the importance of swelling control with RICE treatment as needed. -She is going to follow up with her PCP for continued DVT management -Her goal is to get back to being as physically active as possible. We discussed an ISO test around 12 weeks post op -Follow Up: Return for follow up in 3 months. -CPM - No -Imaging needed at next visit - No. Patient was seen and evaluated with the Sports Medicine Fellow/Resident at today's visit. I performed all essential elements of the history and physical exam at today's visit. I have confirmed the diagnosis at today's visit. I have determined the plan of care for today's visit. Please refer to the fellow/resident's note for further details from today's visit. I have reviewed the note following the visit have added edits as appropriate to my evaluation and plan of care. The diagnoses for today's visit include: ICD-10-CM 1. Internal derangement of left knee M23.92 AMB REFERRAL TO PHYSICAL THERAPY (SPORTS RELATED) AMB REFERRAL TO PHYSICAL THERAPY (SPORTS RELATED) She is feeling much better since her last surgery but not quite there. She is going to continue with some physical therapy will likely see any therapists as they feel like she should be discharged. She still has significant quad atrophy and weakness. I would recommend adding BF are. We will repeat test her in 3 months with a functional test and a clinical visit time. documented in this encounter [facility] 07-04-2022 History of Presen t illness Narrative Chief Complaint Patient presents with Left Knee - Post Op Visit 22 y/o F 2w 4d L AKS with loose body removal, partial menisectomy, resection of dome of tibal and femur, limited synovectomy (DOS 06/16/22). Pt states that knee is feeling good. Doing Pt 2x week. Denies talking any pain meds. PROCEDURES Arthroscopy Knee W/ Meniscectomy - Left, Arthroscopy Knee W/ Fb Removal - Left, Arthroscopy Knee W/ Synovectomy, and Excision Bone Partial Femur Proximal Fibula Tibia - Left on 06/16/2022 CURRENT CONDITION Meri is seen for postoperative follow up now 2 week(s) 4 days postop. Formal physical therapy is in progress. Narcotic pain medication is not being used. Anticoagulation medication is being used. Current problems or concerns: Meri was diagnosed with a DVT post op. She went to her local ED. She is now on 5mg Eliquis BID. We discussed that she would follow up with her PCP for continued management She denies any fevers, chills, night sweats, nausea, vomiting. She denies excessive numbness, tingling, calf pain, chest pain, shortness of breath. She denies erythema, warmth, excessive drainage from the surgical site. PHYSICAL EXAM Pleasant Wt Readings from Last 1 Encounters: 06/16/22 78 kg (172 lb) Ht Readings from Last 1 Encounters: 06/16/22 1.6 m (5' 3 ) 22 y.o. female in no acute distress. Alert and oriented x 3. GAIT: full weight bearing as tolerated Left Lower Extremity: Sutures were removed and steri-strips applied. The incisions are benign--clean, dry, and intact with no erythema, warmth, purulent drainage, or other signs of infection. 2+ distal pulses and sensation intact. Postsurgical abnormal contour is present. Knee effusion: 1+ Range Of Motion: 0-130 Quad Tone: fair Calf Tenderness: Yes +DVT Xrays obtained and reviewed in the office today: No. CONTRALATERAL EXAM Right Knee Exam: No skin lesions, erythema, or warmth. No joint effusion. No joint line tenderness. Negative Kimberley. Ligaments stable. Quad tone good. ROM 0-140 ASSESSMENT 18 days status post: Arthroscopy Knee W/ Meniscectomy - Left, Arthroscopy Knee W/ Fb Removal - Left, Arthroscopy Knee W/ Synovectomy, and Excision Bone Partial Femur Proximal Fibula Tibia - Left PLAN -Procedure Review: The arthroscopic pictures and surgical procedures were reviewed in detail. All questions were answered. -Wound Care: We cautioned on the signs/symptoms of infection to be aware of. Instructed patient to allow steri-strips to fall off on their own. Instructed the patient on no bathing, hot tubs, or water immersion. -DVT Prophylaxis: We cautioned on signs/symptoms of DVT, and gave instructions to continue wearing ALFREDA hose for one more week. -Pain Management: We advised use of pain medication as needed. We stressed the importance of no alcohol, Tylenol products, or other pain medications while on prescribed pain medication. -Physical Therapy: We stressed the importance of continuing home exercises and formal PT in accordance with AKS protocol. -Swelling Control: We stressed the importance of swelling control with RICE treatment as needed. -she is going to follow up with her PCP for continued DVT management -SHE DID LET ME KNOW THAT IN PRE-OP, SHE WENT INTO THE PATIENT BATHROOM TO GIVE HER HCG SAMPLE, THERE WAS URINE ALL OVER THE FLOOR AND TOILET SEAT AND THE PRE OP NURSE MADE HER CLEAN IT UP! -her goal is to get back to being as physically active as possible. We discussed an ISO test around 12 weeks post op -Follow Up: Return for follow up in 4 weeks. -CPM - No -Imaging needed at next visit - No. documented in this encounter [facility] 06-20-2022 Telephone encounter Note Spoke to Lab. Advised for patient to report directly to ER [facility] Work Phone: 06-20-2022 Miscellaneous Notes Spoke to Lab. Advised for patient to report directly to ER Rep called in regards to pt L leg being positive DVT in posterior Tibial vein, Soleus vein, tibial perineal trunk, rep is wanting to what to with patient at Lab now Please call back STAT Faxed doppler and facesheet to fax given. I called patient and verified faxed. Patient of Dr Leiva called. She states she had surgery on 06/16, and has now been experiencing calf pain. She is concerned for blood clot, but is not sure if maybe this is a normal feeling to be having after surgery? She would like a call back bill to discuss. I reached out to Cesar, she will tell Shari and have her give her a call back directly. Informed patient of this, she was appreciative and will await a call. documented in this encounter [facility] 06-20-2022 Telephone encounter Note Rep called in regards to pt L leg being positive DVT in posterior Tibial vein, Soleus vein, tibial perineal trunk, rep is wanting to what to with patient at Lab now Please call back STAT [facility] 06-20-2022 Telephone encounter Note Faxed doppler and facesheet to fax given. I called patient and verified faxed. [facility] 06-20-2022 Telephone encounter Note Patient of Dr Leiva called. She states she had surgery on 06/16, and has now been experiencing calf pain. She is concerned for blood clot, but is not sure if maybe this is a normal feeling to be having after surgery? She would like a call back bill to discuss. I reached out to Cesar, she will tell Shari and have her give her a call back directly. Informed patient of this, she was appreciative and will await a call. [facility] 06-16-2022 History of Presen t illness Narrative Discharge instructions reviewed at bedside with pt and pt's grandma. All rx sent to pt's preferred pharmacy by provider. All questions answered at this time and understanding voiced. IV removed without complication. Pt verbalizes readiness to discharge home. documented in this encounter [facility] 06-16-2022 Nurse Surgical operation note Pt transported to PACU via cart. Report given to HENNY Mcgee [facility] 06-16-2022 Note Formatting of this n ote is different from the original. Meri Mejia ([id number]) PRE OPERATIVE DIAGNOSIS Tear of medial cartilage or meniscus of knee, current [[id number]] Internal derangement of left knee [M23.92] POST OPERATIVE DIAGNOSIS Post-Op Diagnosis Codes: * Acute medial meniscal tear, left, initial encounter [S83.242A] * Internal derangement of left knee [M23.92] * Loose body in knee, left knee [M23.42] * Osteophyte, left knee [M25.762] PROCEDURE PERFORMED Procedure(s) (LRB): ARTHROSCOPY KNEE W/ MENISCECTOMY (Left) ARTHROSCOPY KNEE W/ FB REMOVAL (Left) ARTHROSCOPY KNEE W/ SYNOVECTOMY EXCISION BONE PARTIAL FEMUR PROXIMAL FIBULA TIBIA (Left) PRIMARY CLOSURE Yes INTRAOPERATIVE FINDINGS No significant abnormalities SURGEON Surgeon(s) and Role: * Betty Leiva MD - Primary ANESTHESIOLOGIST Anesthesiologist: Yahir Xavier DO CLOUD ADMINISTRATOR: BASSEM Tapia SURGICAL STAFF Ecommerce Marketing Manager: Mallika Hernadez RN Physician [employer] Operator: Shari Martin PA-C Scrub Person: Katt Ball COMPLICATIONS None ESTIMATED BLOOD LOSS Minimal SPECIMENS No specimen sent * No specimens in log * Betty Leiva MD June 16, 2022 1:43 PM [facility] Work Phone: 06-16-2022 Miscellaneous Notes Meri Mejia ([id number]) PRE OPERATIVE DIAGNOSIS Tear of medial cartilage or meniscus of knee, current [[id number]] Internal derangement of left knee [M23.92] POST OPERATIVE DIAGNOSIS Post-Op Diagnosis Codes: * Acute medial meniscal tear, left, initial encounter [S83.242A] * Internal derangement of left knee [M23.92] * Loose body in knee, left knee [M23.42] * Osteophyte, left knee [M25.762] PROCEDURE PERFORMED Procedure(s) (LRB): ARTHROSCOPY KNEE W/ MENISCECTOMY (Left) ARTHROSCOPY KNEE W/ FB REMOVAL (Left) ARTHROSCOPY KNEE W/ SYNOVECTOMY EXCISION BONE PARTIAL FEMUR PROXIMAL FIBULA TIBIA (Left) PRIMARY CLOSURE Yes INTRAOPERATIVE FINDINGS No significant abnormalities SURGEON Surgeon(s) and Role: * Betty Leiva MD - Primary ANESTHESIOLOGIST Anesthesiologist: Yahir Xavier DO CLOUD ADMINISTRATOR: BASSEM Tapia SURGICAL STAFF Ecommerce Marketing Manager: Mallika Hernadez RN Physician [employer] Operator: Shari Martin PA-C Scrub Person: Katt Ball COMPLICATIONS None ESTIMATED BLOOD LOSS Minimal SPECIMENS No specimen sent * No specimens in log * Betty Leiva MD June 16, 2022 1:43 PM documented in this encounter [facility] 06-16-2022 Nurse Note Pt transported to PACU via cart. Report given to HENNY Mcgee documented in this encounter [facility] 06-16-2022 Hospital Discharg e instructions Shari Martin PA-C - 06/16/2022 1:41 PM EST Home Care After Ambulatory Surgery The following instructions will help you care for yourself, or be cared for upon your return home today. These are guidelines for your care right after surgery only. Diet: Drink plenty of liquids and eat light meals today. Start your regular diet tomorrow or as tolerated. Anesthesia Precautions & Expectations: After anesthesia, rest for [address], drink alcoholic beverages or make any important decisions during this time. General anesthesia may cause a sore throat, jaw discomfort or muscle aches. These symptoms can last for one or two days. What to Expect after surgery: Minimal drainage from the incision. Mild to moderate discomfort and tenderness. Call your Doctor for: Pain not relieved with medicines. Increased amounts of redness, swelling, or any drainage (pus) from the incision. Temperature above 101 degrees. Nausea and vomiting not resolved in 24 hours. YOUR POSTOPERATIVE APPOINTMENT Call your Surgeon's office to make a follow up appointment if you do not have one already scheduled. POLARCARE DEVICE 20 minutes on, 1 hour off, 4-6 sessions per day. Do not apply directly to skin to avoid frostbite WEIGHT BEARING STATUS WEIGHT BEARING STATUS: Full weight bearing - wean off of crutches when you are comfortable to do so BRACE STATUS BRACE STATUS: Hinge knee brace- NO CPM MACHINE CPM MACHINE: No BLOOD CLOT PREVENTION Eliquis 2.5 mg twice daily for 2-6 weeks OR Aspirin 325 mg once daily for 6-12 weeks WOUND CARE Keep dressings on for 3 days after surgery. You may then remove and apply bandages over incisions. Some bleeding after surgery is normal--do not be alarmed if some soaks through dressings. To avoid infection keep your incisions clean and dry. After the third day you may shower if you cover the incisions with some type of protection (like a plastic bag or saran wrap). No bathing, hot tubs, or water immersion until sutures are removed and scabs have fully healed. Do not remove your sutures--they will be removed in the clinic at the appropriate time. PAIN MANAGEMENT You will receive a prescription for pain medication the day of surgery--take as directed. Common side effects are nausea, drowsiness, and constipation. Consider taking the medication with food. Try an [id number] laxative for constipation if necessary. Do not operate a motor vehicle or heavy machinery while on narcotic pain medication. When taking you pain medication do not consume alcohol or take any other narcotic pain medications or sedatives You should take Tylenol (1000mg every 6 hours) and ibuprofen (400 mg every 6 hours with food) to minimize that amount of oxycodone you need to take. NSAIDs are ok to take with aspirin or the eliquis as long as the patient does not have any GI history of upset or stomach ulcer. NSAID-type medications have two very important potential side effects: gastrointestinal irritation including hemorrhage and renal injuries. Please take the medication with food and stop if you experience any GI upset (vomiting, abdominal pain or black/bloody stools) ICING technique Ice with either the cold pack or the ice man (whichever is applied or given day of surgery) 20min on and 2hrs off. Please make sure to have a barrier between your skin and the ice to protect your skin/incision from solomon bite. PHYSICAL THERAPY If you were given home exercises to do, begin these 24 hours after surgery. If indicated, you may receive a prescription for physical therapy. Therapy appointments are usually set up prior to surgery. If you do not have a physical therapy appointment scheduled, please call the office to get your appointment scheduled. Therapy usually begins 3-5 days after surgery. If you are not doing PT at an [facility] facility, please have your therapist contact our PT department ([phone]) for a protocol. A knee arthroscopy does not require a protocol. Stiffness and discomfort are common after surgery. Try to continue your exercises as they are important for recovery and may help your symptoms. ALFREDA HOSE If indicated, you may receive ALFREDA hose stockings the day of surgery. These are used to improve circulation and to help prevent blood clots. If this applies to you, you will begin wearing one stocking on you non-operative leg in the pre-op area. Add the other stocking to your operative leg after you have removed the dressing on the third day after surgery. Wear at all times except when bathing. Take care that they are worn smoothly and are not bunching up behind your knee or thigh. They can be laundered in cold water with mild detergent, 15-20 minutes on low heat or air dry. These will typically be worn for 2 weeks following surgery. OTHER IMPORTANT INSTRUCTIONS Avoid placing a pillow under your knee for extended periods of time, especially for sleeping at night--it will make getting your full extension back very difficult and more painful. You may prop something under your ankle to help with extension. Use your crutches as directed paying close attention to your prescribed weight bearing status. Try to keep your leg elevated and ice consistently--this will help some with pain and swelling. Avoid long periods of sitting, bed rest, or travel for the first two weeks after surgery as this can contribute to developing blood clots. Do not drive until cleared by your physician. The effects of anesthesia may linger after your surgery and can cause drowsiness, nausea, and vomiting. Do not make important decisions within the next 24 hours. EMERGENCY CARE Contact your Surgeon's office if you experience any of the following: Calf pain, chest pain, or shortness of breath Fever over 101 degrees (low-grade fever after surgery is not uncommon) Spreading redness, excessive pus-like or bloody drainage from incisions Painful swelling or numbness Unrelenting pain Excessive nausea or vomting For after-hours emergencies--call the main office number at [phone] or [phone] to contact the on-call orthopedic physician. If you experience a life-threatening emergency, go to the nearest emergency room as soon as possible. Knee Team Surgeon contact info: Dr Betty Leiva Office# [phone] documented in this encounter [facility] 06-16-2022 History and physical note PERIOPERATIVE SURGICAL HISTORY AND PHYSICAL UPDATE Pre-op Diagnoses: Tear of medial cartilage or meniscus of knee, current [[id number]] Internal derangement of left knee [M23.92] Procedure(s): ARTHROSCOPY KNEE W/ MENISCECTOMY Surgeon(s): Surgeon(s) and Role: * Betty Leiva MD - Primary History and Physical Update: There were no vitals taken for this visit. I have reviewed Meri Mejia's medical, surgical and other pertinent history, and I have updated the medication and allergy information in the computerized patient record. I have examined the patient, reviewed the previous H&P completed on date (06/12/22) and there are no changes. Today's surgical history and physical update was completed by Shari Martin PA-C, 06/16/2022, 11:28 AM. [facility] 06-16-2022 History and physical note PERIOPERATIVE SURGICAL HISTORY AND PHYSICAL UPDATE Pre-op Diagnoses: Tear of medial cartilage or meniscus of knee, current [[id number]] Internal derangement of left knee [M23.92] Procedure(s): ARTHROSCOPY KNEE W/ MENISCECTOMY Surgeon(s): Surgeon(s) and Role: * Betty Leiva MD - Primary History and Physical Update: There were no vitals taken for this visit. I have reviewed Meri Mejia's medical, surgical and other pertinent history, and I have updated the medication and allergy information in the computerized patient record. I have examined the patient, reviewed the previous H&P completed on date (06/12/22) and there are no changes. Today's surgical history and physical update was completed by Shari Martin PA-C, 06/16/2022, 11:28 AM. documented in this encounter [facility] 06-05-2022 History of Presen t illness Narrative Chief Complaint Patient presents with Left Knee - Condition Update f/u 5m 23d s/p L ACLR with BTB autograft, medial and lateral meniscus repair, medial femoral chondroplasty, loose body removal, hardware removal, lateral extra-articular tenodesis. DOS 03/04/22. She is having trouble with ext, she has been done prone hangs which help for about an hour. Pain with ext and walking for long duration. She is having clicking. PT 1x/w and working out at home. PROCEDURES Arthroscopy Knee W/ Repair Or Reconstruction Ligament Cruciate Bone Tendon Bone - Left, Arthroscopy Knee W/ Meniscus Repair - Left, Arthroscopy Knee W/ Repair Ligament Collateral Knee - Left, Arthroscopy Knee W/ Fb Removal - Left, Arthroscopy Knee W/ Chondroplasty/abrasion Arthroplasty - Left, and Removal Hardware - Left on 12/11/2021 CURRENT CONDITION Meri is seen for postoperative follow up now 6 mo(s) postop. Formal physical therapy is in progress. Going outside of [facility] Narcotic pain medication is not being used. Anticoagulation medication is not being used. Current problems or concerns: trouble with extension, occasional swelling. Limiting her at this point Functional test with 45 and 35% quad deficit She denies any fevers, chills, night sweats, nausea, vomiting. She denies excessive numbness, tingling, calf pain, chest pain, shortness of breath. She denies erythema, warmth, excessive drainage from the surgical site. PHYSICAL EXAM Pleasant Wt Readings from Last 1 Encounters: 03/14/22 75.9 kg (167 lb 6.4 oz) Ht Readings from Last 1 Encounters: 03/14/22 1.6 m (5' 3 ) 22 y.o. female in no acute distress. Alert and oriented x 3. GAIT: slight limp Left Lower Extremity: The incisions are benign--clean, dry, and intact with no erythema, warmth, purulent drainage, or other signs of infection. 2+ distal pulses and sensation intact. Postsurgical abnormal contour is present. Knee effusion: trace Range Of Motion: 3-140 Quad Tone: fair Calf Tenderness: No Xrays obtained and reviewed in the office today: Yes. They demonstrate interval healing of osteotomy or graft. CONTRALATERAL EXAM Right Knee Exam: No skin lesions, erythema, or warmth. No joint effusion. No joint line tenderness. Negative Kimberley. Ligaments stable. Quad tone good. ROM 0-140 ASSESSMENT 5 mo status post: 1. Left knee anterior cruciate ligament revision reconstruction using BTB autograft (modifier 22 for increased complexity). 2. Medial and lateral meniscus repair (modifier 22 for increased complexity). 3. Chondroplasty, medial femoral condyle. 4. Loose body removal, anterior compartment. 5. Hardware removal, femur. 6. Lateral extra-articular tenodesis. PLAN -concern for cyclops lesion, will get MR to assess. If it is there she would like to proceed with surgery. The risks and benefits of the procedure were fully explained, including but not limited to infection, neurovascular injury, continued pain, arthritis, stiffness, need for further surgery, re-injury re-tear, DVT, PE, and loss of limb or life. The patient understands all the risks and does wish to proceed. We will try to do this in a timely fashion. -Physical Therapy: We stressed the importance of continuing home exercises and formal PT in accordance with ACLR and MR protocol. -Swelling Control: We stressed the importance of swelling control with RICE treatment as needed. 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 Patient reports that she is doing well, having intermittent pain, but not at a level she considers significant. Patient has not specific questions or concerns today. PROCEDURES Arthroscopy Knee W/ Repair Or Reconstruction Ligament Cruciate Bone Tendon Bone - Left, Arthroscopy Knee W/ Meniscus Repair - Left, Arthroscopy Knee W/ Repair Ligament Collateral Knee - Left, Arthroscopy Knee W/ Fb Removal - Left, Arthroscopy Knee W/ Chondroplasty/abrasion Arthroplasty - Left, and Removal Hardware - Left on 12/11/2021 CURRENT CONDITION Meri is seen for postoperative follow up now 12 week(s) postop. Formal physical therapy is in progress. Going outside of [facility] Narcotic pain medication is not being used. Anticoagulation medication is being used. Current problems or concerns: none Happy with how she is doing. She denies any fevers, chills, night sweats, nausea, vomiting. She denies excessive numbness, tingling, calf pain, chest pain, shortness of breath. She denies erythema, warmth, excessive drainage from the surgical site. PHYSICAL EXAM Pleasant Wt Readings from Last 1 Encounters: 11/14/21 72.3 kg (159 lb 6.4 oz) Ht Readings from Last 1 Encounters: 12/11/21 1.575 m (5' 2 ) 21 y.o. female in no acute distress. Alert and oriented x 3. GAIT: slight limp Left Lower Extremity: The incisions are benign--clean, dry, and intact with no erythema, warmth, purulent drainage, or other signs of infection. 2+ distal pulses and sensation intact. Postsurgical abnormal contour is present. Knee effusion: trace Range Of Motion: 0-140 Quad Tone: fair Calf Tenderness: No Xrays obtained and reviewed in the office today: Yes. They demonstrate interval healing of osteotomy or graft. CONTRALATERAL EXAM Right Knee Exam: No skin lesions, erythema, or warmth. No joint effusion. No joint line tenderness. Negative Kimberley. Ligaments stable. Quad tone good. ROM 0-140 ASSESSMENT 12 weeks status post: 1. Left knee anterior cruciate ligament revision reconstruction using BTB autograft (modifier 22 for increased complexity). 2. Medial and lateral meniscus repair (modifier 22 for increased complexity). 3. Chondroplasty, medial femoral condyle. 4. Loose body removal, anterior compartment. 5. Hardware removal, femur. 6. Lateral extra-articular tenodesis. PLAN -Physical Therapy: We stressed the importance of continuing home exercises and formal PT in accordance with ACLR and MR protocol. -Swelling Control: We stressed the importance of swelling control with RICE treatment as needed. 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 FX: [phone]. Patient would like a call back when her paperwork is faxed. [facility] Miscellaneous Notes Patient of Dr Leiva calling in to give us fax number for [employer] [facility]. FX: [phone]. Patient would like a call back when her paperwork is faxed. documented in this encounter [facility] 01-23-2022 History of Presen t illness Narrative Chief Complaint Patient presents with Left Knee - Surgical Follow-up 6w1d s/p L ACLR with BTB autograft, medial and lateral meniscus repair, medial femoral chondroplasty, loose body removal, hardware removal, lateral extra-articular tenodesis. Patient reports doing well, only minor pain with certain movements. PT 3x/wk. No specific concerns today PROCEDURES Arthroscopy Knee W/ Repair Or Reconstruction Ligament Cruciate Bone Tendon Bone - Left, Arthroscopy Knee W/ Meniscus Repair - Left, Arthroscopy Knee W/ Repair Ligament Collateral Knee - Left, Arthroscopy Knee W/ Fb Removal - Left, Arthroscopy Knee W/ Chondroplasty/abrasion Arthroplasty - Left, and Removal Hardware - Left on 12/11/2021 CURRENT CONDITION Meri is seen for postoperative follow up now 6 week(s) postop. Formal physical therapy is in progress. Narcotic pain medication is not being used. Anticoagulation medication is being used. Current problems or concerns: none Happy with how she is doing. She denies any fevers, chills, night sweats, nausea, vomiting. She denies excessive numbness, tingling, calf pain, chest pain, shortness of breath. She denies erythema, warmth, excessive drainage from the surgical site. PHYSICAL EXAM Pleasant Wt Readings from Last 1 Encounters: 11/14/21 72.3 kg (159 lb 6.4 oz) Ht Readings from Last 1 Encounters: 12/11/21 1.575 m (5' 2 ) 21 y.o. female in no acute distress. Alert and oriented x 3. GAIT: slight limp Left Lower Extremity: The incisions are benign--clean, dry, and intact with no erythema, warmth, purulent drainage, or other signs of infection. 2+ distal pulses and sensation intact. Postsurgical abnormal contour is present. Knee effusion: 1+ Range Of Motion: 0-130 Quad Tone: fair Calf Tenderness: No Xrays obtained and reviewed in the office today: Yes. They demonstrate interval healing of osteotomy or graft. CONTRALATERAL EXAM Right Knee Exam: No skin lesions, erythema, or warmth. No joint effusion. No joint line tenderness. Negative Kimberley. Ligaments stable. Quad tone good. ROM 0-140 ASSESSMENT 2 weeks status post: 1. Left knee anterior cruciate ligament revision reconstruction using BTB autograft (modifier 22 for increased complexity). 2. Medial and lateral meniscus repair (modifier 22 for increased complexity). 3. Chondroplasty, medial femoral condyle. 4. Loose body removal, anterior compartment. 5. Hardware removal, femur. 6. Lateral extra-articular tenodesis. PLAN -Physical Therapy: We stressed the importance of continuing home exercises and formal PT in accordance with ACLR and MR protocol. -Swelling Control: We stressed the importance of swelling control with RICE treatment as needed. -Brace Status: may want ACL brace in future -Follow Up: Return for follow up in 6 weeks with shari. If doing well will see me at 6 month follow up with functional test documented in this encounter [facility] 12-25-2021 History of Presen t illness Narrative Sports Medicine Clinic Post-op Note Chief Complaint: Chief Complaint Patient presents with Left Knee - Post Op Visit 14d s/p L ACLR with BTB autograft, medial and lateral meniscus repair, medial femoral chondroplasty, loose body removal, hardware removal, lateral extra-articular tenodesis. Patient states that she has been doing well. Pain is well-managed with tylenol prn. PT 2x/wk. Denies fever, SOB, chest pain, calf pain. No specific concerns for today. HISTORY OF PRESENT ILLNESS: Meri Mejia is a 21 y.o. female, who presents to clinic 2 weeks s/p left knee ACL reconstruction, medial and latera meniscus repair, and LET. She denies any fevers, chills, night sweats, nausea, vomiting. She denies excessive numbness, tingling, calf pain, chest pain, shortness of breath. She denies erythema, warmth, excessive drainage from the surgical site. She rates her pain a 0-4/10. The swelling is improving. Formal physical therapy is in progress. Narcotic pain medication is not being used. Tylenol. Anticoagulation medication is being used. ASA Physical Exam: Smoking Status Never Smoker There is no height or weight on file to calculate BMI. General appearance: Alert and cooperative, appears stated age Constitutional: Well-developed, well-nourished, and in no distress. Pulmonary/Chest: Effort normal. Neurological: Alert and oriented to person, place, and time. Examination of the left knee reveals: No erythema or warmth Steri-strips were removed and surgical incisions are clean, dry, and intact with no erythema, warmth, purulent drainage, or other signs of infection. Effusion: 1+ Range of Motion: 0-70 Quad Tone: fair Ottoniel: Deferred Patellar Mobility: good Calf Tenderness: No REVIEW OF IMAGING By my independent review AP and lateral views of the knee demonstrate femoral button in place and appropriate position. Joint spaces are well preserved. Assessment and Plan: This is a pleasant 21 y.o. female who is 2 weeks s/p left knee ACL reconstruction and overall doing well. PLAN -Procedure Review: The arthroscopic pictures and surgical procedures were reviewed in detail. All questions were answered. -Wound Care: We cautioned on the signs/symptoms of infection to be aware of. Instructed patient to allow steri-strips to fall off on their own. Instructed the patient on no bathing, hot tubs, or water immersion. -DVT Prophylaxis: We cautioned on signs/symptoms of DVT. Continue ASA -Pain Management: We advised use of pain medication as needed. -Physical Therapy: We stressed the importance of continuing home exercises and formal PT in accordance with ACL reconstruction protocol. -Swelling Control: We stressed the importance of swelling control with RICE treatment as needed. -Brace Status: The brace may be discontinued -Weight Bearing Status:She will do 50% WB for the next 2 weeks then progress as tolerated. I want her on crutches until 4 weeks PO. -Follow Up: Return for follow up in [address] Leiva. -Imaging needed at next visit - No Betty Soto PA-C [facility] Orthopedic Sports Medicine Please note: This note was created using voice recognition software. Please excuse any typos or grammatical errors. documented in this encounter [facility] 12-11-2021 Note Formatting of this n ote might be different from the original. Reviewed AVS, discharge instructions, s/sx of blood clots/ infection, home exercises, weight-bearing as tolerated status, prescriptions, follow-up appointment, and when to call the office with patient and patient's mom. All questions answered. [facility] Miscellaneous Notes Reviewed AVS, discharge instructions, s/sx of blood clots/ infection, home exercises, weight-bearing as tolerated status, prescriptions, follow-up appointment, and when to call the office with patient and patient's mom. All questions answered. Meri Mejia ([id number]) PRE OPERATIVE DIAGNOSIS Sprain of cruciate ligament of knee [S83.509A] Internal derangement of left knee [M23.92] POST OPERATIVE DIAGNOSIS Post-Op Diagnosis Codes: * Sprain of cruciate ligament of knee [S83.509A] * Internal derangement of left knee [M23.92] * Acute medial meniscal tear, left, initial encounter [S83.242A] * Acute lateral meniscus tear of left knee, initial encounter [S83.282A] * Knee instability, left [M25.362] * Loose body in knee, left knee [M23.42] * Failed orthopedic implant, initial encounter [T84.498A] PROCEDURE PERFORMED Procedure(s) (LRB): ARTHROSCOPY KNEE W/ REPAIR OR RECONSTRUCTION LIGAMENT CRUCIATE BONE TENDON BONE (Left) ARTHROSCOPY KNEE W/ MENISCUS REPAIR (Left) ARTHROSCOPY KNEE W/ REPAIR LIGAMENT COLLATERAL KNEE (Left) ARTHROSCOPY KNEE W/ FB REMOVAL (Left) ARTHROSCOPY KNEE W/ CHONDROPLASTY/ABRASION ARTHROPLASTY (Left) REMOVAL HARDWARE (Left) PRIMARY CLOSURE Yes INTRAOPERATIVE FINDINGS No significant abnormalities SURGEON Surgeon(s) and Role: * Betty Leiva MD - Primary ANESTHESIOLOGIST Anesthesiologist: Charles Moreau MD; Brien Jimenez MD CLOUD ADMINISTRATOR: Kingsley Finch APRN-CLOUD ADMINISTRATOR SURGICAL STAFF Ecommerce Marketing Manager: Mallika Hernadez RN Relief Ecommerce Marketing Manager: Juliana Horne RN Relief Scrub: Jocelyn Reddy Scrub Person: Malissa Diaz Resident Assisting: Jessica Zhu MD COMPLICATIONS None ESTIMATED BLOOD LOSS Minimal SPECIMENS Microbiology specimen sent ID Type Source Tests Collected by Time Destination A : Left Tibial Tunnel Surgical Wound SURGICAL WOUND FUNGUS CULTURE, ACID FAST CULTURE, ANAEROBE CULTURE, BACTERIAL CULTURE AND DIRECT SMEAR, LESION, TISSUE, DEVICE Betty Leiva MD 12/11/2021 [id number] : Left Femoral Tunnel Surgical Wound SURGICAL WOUND FUNGUS CULTURE, ACID FAST CULTURE, ANAEROBE CULTURE, BACTERIAL CULTURE AND DIRECT SMEAR, LESION, TISSUE, DEVICE Betty Leiva MD 12/11/2021 [id number] Betty Leiva MD December 11, 2021 2:54 PM documented in this encounter [facility] 12-11-2021 Hospital Discharg e instructions Jessica Zhu MD - 12/11/2021 3:22 PM EDT Home Care After Ambulatory Surgery The following instructions will help you care for yourself, or be cared for upon your return home today. These are guidelines for your care right after surgery only. Diet: Drink plenty of liquids and eat light meals today. Start your regular diet tomorrow or as tolerated. Anesthesia Precautions & Expectations: After anesthesia, rest for [address], drink alcoholic beverages or make any important decisions during this time. General anesthesia may cause a sore throat, jaw discomfort or muscle aches. These symptoms can last for one or two days. What to Expect after surgery: Minimal drainage from the incision. Mild to moderate discomfort and tenderness. Call your Doctor for: Pain not relieved with medicines. Increased amounts of redness, swelling, or any drainage (pus) from the incision. Temperature above 101 degrees. Nausea and vomiting not resolved in 24 hours. YOUR POSTOPERATIVE APPOINTMENT Call your Surgeon's office to make a follow up appointment if you do not have one already scheduled. POL[employer]ARE DEVICE 20 minutes on, 1 hour off, 4-6 sessions per day. Do not apply directly to skin to avoid frostbite WEIGHT BEARING STATUS WEIGHT BEARING STATUS: Full weight bearing - wean off of crutches when you are comfortable to do so BRACE STATUS BRACE STATUS: Hinge knee brace- YES locked in extension for 2 weeks while walking and sleeping CPM MACHINE CPM MACHINE: No BLOOD CLOT PREVENTION Eliquis 2.5 mg twice daily for 2-6 weeks OR Aspirin 325 mg once daily for 6-12 weeks WOUND CARE Keep dressings on for 3 days after surgery. You may then remove and apply bandages over incisions. Some bleeding after surgery is normal--do not be alarmed if some soaks through dressings. To avoid infection keep your incisions clean and dry. After the third day you may shower if you cover the incisions with some type of protection (like a plastic bag or saran wrap). No bathing, hot tubs, or water immersion until sutures are removed and scabs have fully healed. Do not remove your sutures--they will be removed in the clinic at the appropriate time. PAIN MANAGEMENT You will receive a prescription for pain medication the day of surgery--take as directed. Common side effects are nausea, drowsiness, and constipation. Consider taking the medication with food. Try an [id number] laxative for constipation if necessary. Do not operate a motor vehicle or heavy machinery while on narcotic pain medication. When taking you pain medication do not consume alcohol or take any other narcotic pain medications or sedatives You should take Tylenol (1000mg every 6 hours) and ibuprofen (400 mg every 6 hours with food) to minimize that amount of oxycodone you need to take PHYSICAL THERAPY If you were given home exercises to do, begin these 24 hours after surgery. If indicated, you may receive a prescription for physical therapy. Therapy appointments are usually set up prior to surgery. If you do not have a physical therapy appointment scheduled, please call the office to get your appointment scheduled. Therapy usually begins 3-5 days after surgery. If you are not doing PT at an [facility] facility, please have your therapist contact our PT department ([phone]) for a protocol. A knee arthroscopy does not require a protocol. Stiffness and discomfort are common after surgery. Try to continue your exercises as they are important for recovery and may help your symptoms. ALFREDA HOSE If indicated, you may receive ALFREDA hose stockings the day of surgery. These are used to improve circulation and to help prevent blood clots. If this applies to you, you will begin wearing one stocking on you non-operative leg in the pre-op area. Add the other stocking to your operative leg after you have removed the dressing on the third day after surgery. Wear at all times except when bathing. Take care that they are worn smoothly and are not bunching up behind your knee or thigh. They can be laundered in cold water with mild detergent, 15-20 minutes on low heat or air dry. These will typically be worn for 2 weeks following surgery. OTHER IMPORTANT INSTRUCTIONS Avoid placing a pillow under your knee for extended periods of time, especially for sleeping at night--it will make getting your full extension back very difficult and more painful. You may prop something under your ankle to help with extension. Use your crutches as directed paying close attention to your prescribed weight bearing status. Try to keep your leg elevated and ice consistently--this will help some with pain and swelling. Avoid long periods of sitting, bed rest, or travel for the first two weeks after surgery as this can contribute to developing blood clots. Do not drive until cleared by your physician. The effects of anesthesia may linger after your surgery and can cause drowsiness, nausea, and vomiting. Do not make important decisions within the next 24 hours. EMERGENCY CARE Contact your Surgeon's office if you experience any of the following: Calf pain, chest pain, or shortness of breath Fever over 101 degrees (low-grade fever after surgery is not uncommon) Spreading redness, excessive pus-like or bloody drainage from incisions Painful swelling or numbness Unrelenting pain Excessive nausea or vomting For after-hours emergencies--call the main office number at [phone] or [phone] to contact the on-call orthopedic physician. If you experience a life-threatening emergency, go to the nearest emergency room as soon as possible. Knee Team Surgeon contact info: Dr Betty Leiva Office# [phone] documented in this encounter [facility] 12-11-2021 Nurse Surgical operation note ISBAR report given to Lanette CONSTRUCTION FLAGGER. Pt taken to PACU on cart with Kieran CLOUD ADMINISTRATOR and LFerguson. [facility] 12-11-2021 Nurse Note ISBAR report given to Lanette CONSTRUCTION FLAGGER. Pt taken to PACU on cart with SMcDonald CLOUD ADMINISTRATOR and LFerguson. documented in this encounter [facility] 12-11-2021 Note Formatting of this n ote is different from the original. Meri Jackie ([id number]) PRE OPERATIVE DIAGNOSIS Sprain of cruciate ligament of knee [S83.509A] Internal derangement of left knee [M23.92] POST OPERATIVE DIAGNOSIS Post-Op Diagnosis Codes: * Sprain of cruciate ligament of knee [S83.509A] * Internal derangement of left knee [M23.92] * Acute medial meniscal tear, left, initial encounter [S83.242A] * Acute lateral meniscus tear of left knee, initial encounter [S83.282A] * Knee instability, left [M25.362] * Loose body in knee, left knee [M23.42] * Failed orthopedic implant, initial encounter [T84.498A] PROCEDURE PERFORMED Procedure(s) (LRB): ARTHROSCOPY KNEE W/ REPAIR OR RECONSTRUCTION LIGAMENT CRUCIATE BONE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 arthroscopy DOS 04/15/2023Knee feels good. Denies N/T no new mechanical symptoms. PT 2x week HEP 3x day everyday patient states they are 70% better want strength back and walking normalSutures and staple looked good and removed Specialty Diagnoses / Procedures Referred By Larisa bob Referred To Contact Diagnoses Internal derangement of left knee Procedures XR KNEE LEFT 1-2 VIEWS Shari Martin, PAC [address] [place] [address] Referral ID Status Reason Start Date Expiration Date V isits Requested Visits Authorized [id number] New Request 04/30/2023 05/24/2024 1 1 Care Teams (unrecognized sec tion and content) Airplane Patroller Relationship Specialty Start Date End Date Clyde Quinones MD [address] [facility], [place] [address] PCP - General Pediatrics 02/27/14 Airplane Patroller Relationship Specialty Start Date End Date Clyde Quinones MD [address] [facility] [place] [address] PCP - General Pediatrics 02/27/14 Airplane Patroller Relationship Specialty [place] [address] [place] [address], [place] [address] PCP - General Pediatrics 10/09/21 Airplane Patroller Relationship Specialty Start Date End Date Clyde Quinones MD [address] [facility] [place] [address] PCP - General Pediatrics 02/27/14 Airplane Patroller Relationship Specialty [place] [address] [place] [address], [place] [address] PCP - General Pediatrics 10/09/21 Airplane Patroller Relationship Specialty Start Date End Date Clyde Quinones MD [address] [facility] [place] [address] PCP - General Pediatrics 10/09/21 Airplane Patroller Relationship Specialty Start Date End Date Clyde Quinones MD [address] [facility] [place] [address] PCP - General Pediatrics 10/09/21 Airplane Patroller Relationship Specialty Start Date End Date Clyde Quinones MD [facility] [facility] [place] [address] PCP - General Pediatrics 10/09/21 Airplane Patroller Relationship Specialty [place] [address] [place] [address], [place] [address] PCP - General Pediatrics 10/09/21 Airplane Patroller Relationship Specialty Start Date End Date Clyde Quinones MD [address] [facility], [place] [address] PCP - General Pediatrics 10/09/21 Airplane Patroller Relationship Specialty Start Date End Date Clyde Quinones MD [address] [facility] [place] [address] PCP - General Pediatrics 10/09/21 Airplane Patroller Relationship Specialty Start Date End Date Clyde Quinones MD [address] [facility] [place] [address] PCP - General Pediatrics 10/09/21 Airplane Patroller Relationship Specialty Start Date End Date Clyde Quinones MD [address] [facility] [place] [address] PCP - General Pediatrics 10/09/21 Airplane Patroller Relationship Specialty Start Date End Date Clyde Quinones MD [address] [facility] [place] [address] PCP - General Pediatrics 10/09/21 Airplane Patroller Relationship Specialty Start Date End Date Clyde Quinones MD [address] [facility] [place] [address] PCP - General Pediatrics 10/09/21 Airplane Patroller Relationship Specialty Start Date End Date Clyde Quinones MD [address] [facility] [place] [address] PCP - General Pediatrics 10/09/21 Airplane Patroller Relationship Specialty Start Date End Date Clyde Quinones MD [address] [facility] [place] [address] PCP - General Pediatrics 10/09/21 Airplane Patroller Relationship Specialty Start Date End Date Clyde Quinones MD [address] [facility] [place] [address] PCP - General Pediatrics 10/09/21 Airplane Patroller Relationship Specialty Start Date End Date Clyde Quinones MD [address] [place], [place] [address] PCP - General Pediatrics 10/09/21 Airplane Patroller Relationship Specialty Start Date End Date Clyde Quinones MD [address] [place], [place] [address] PCP - General Pediatrics 10/09/21 Airplane Patroller Relationship Specialty Start Date End Date Cherry Ramachandran FNP [address] [facility] [address] [place] [phone] PCP - General Nurse Practitioner - Family 03/23/23 Airplane Patroller Relationship Specialty Start Date End Date Cherry Ramachandran FNP [address] [facility] [address] [place] [phone] PCP - General Nurse Practitioner - Family 03/23/23 Airplane Patroller Relationship Specialty Start Date End Date Cherry Ramachandran FNP [address] [facility] [address] [place] [phone] PCP - General Nurse Practitioner - Family 03/23/23 Airplane Patroller Relationship Specialty Start Date End Date Cherry Ramachandran FNP [address] [facility] [address] [place] [phone] PCP - General Nurse Practitioner - Family 03/23/23 INFORMATION SOURCE (unrecogn ized section and content) DATE CREATED AUTHOR AUTHOR'S ORGANIZ ATION 10/29/2022 [facility] DATE CREATED AUTHOR AUTHOR'S ORGANIZ ATION 10/30/2022 [facility] DATE CREATED AUTHOR AUTHOR'S ORGANIZ ATION 04/12/2023 [facility] Scheduled Active and Recently Administ ered Medications (unrecognized section and content) Continuous Medication Order 12/09/2021 12/10/2021 12/11/2021 lactated ringers IV solution Intravenous, at 20 mL/hr, CONTINUOUS, Starting on Thu12/11/21 at 1045, Until Thu12/11/21 at 1859, Pre-op/Pre-Proc 1101 ($$New Bag$$ - Provider: Ysabel Michaud RN)1659 (Stopped - Provider: Lanette Baptiste RN) PRN Medication Order 12/09/2021 12/10/2021 12/11/2021 ceFAZolin (ANCEF) 2 g in dextrose 100 mL premix IVPB (COMPLETED) 2 g, Intravenous, Administer over 30 Minutes, DRY TALC RACKER TO PROCEDURE, 1 dose, Starting on Thu12/11/21 at 1040, Until Discontinued, Other, Surgical Prophylaxis, Initiate antibiotic administration 30-60 minutes prior to surgical incision and complete administration prior to surgical incision., Pre-op/Pre-Proc 1244 (Given - Provid er: Kingsley Finch, CAN FILLING MACHINE OPERATOR-CLOUD ADMINISTRATOR) fentaNYL (SUBLIMAZE) injection 25 mcg 25 mcg, Intravenous, Administer over 2 Minutes, EVERY 10 MINUTES NEEDED, 4 doses, Starting on Thu12/11/21 at 1452, Until Thu12/11/21 at 1859, Moderate Pain, Severe Pain, Recovery 1610 (Given - Provid er: Lanette Baptiste RN) haloperidol lactate (HALDOL) injection 1 mg (COMPLETED) 1 mg, Intravenous, ONCE NEEDED, 1 dose, Starting on Thu12/11/21 at 1452, Until Thu12/11/21 at 2359, Nausea, FIRST line antiemetic, Do not administer within 6 hours of intra-operative dose., Recovery 1540 (Given - Provid er: Lanette Baptiste RN) HYDROmorphone (DILAUDID) injection 0.2 mg(Linked Group 1) 0.2 mg, Intravenous, EVERY 5 MINUTES NEEDED, Starting on Thu12/11/21 at 1452, Until Thu12/11/21 at 1859, Moderate Pain, Severe Pain, Use as initial dose. Higher dose may be administered if lower dose did not result in adverse effects (RR<10, decrease in level of consciousness) and was previously documented as ineffective. May give a total of 4mg in PACU., Recovery HYDROmorphone (DILAUDID) injection 0.5 mg(Linked Group 1) 0.5 mg, Intravenous, EVERY 5 MINUTES NEEDED, Starting on Thu12/11/21 at 1452, Until Thu12/11/21 at 1859, Moderate Pain, Severe Pain, Higher dose may be administered if lower dose did not result in adverse effects (RR<10, decrease in level of consciousness) and was previously documented as ineffective. Decrease back to lower dose if patient has adverse effects, or no PRN used in previous 30 minutes. May give a total of 4mg in PACU ., Recovery ketorolac (TORADOL) injection 30 mg (COMPLETED) 30 mg, Intravenous, ONCE NEEDED, 1 dose, Starting on Thu12/11/21 at 1452, Until Thu12/11/21 at 2359, Moderate Pain, Recovery 1552 (Given - Provid er: Lanette Baptiste RN) lidocaine 1% buffered in sodium bicarbonate 1-8.4 % injection SOSY 1 mL 1 mL, Intradermal, NEEDED, Starting on Thu12/11/21 at 1040, Until Thu12/11/21 at 1859, Other, for peripheral IV insertion, For peripheral IV insertion, Pre-op/Pre-Proc 1101 (Given - Provid er: Ysabel Michaud RN) oxyCODONE (ROXICODONE) tablet 10 mg(Linked Group 2) 10 mg, Oral, EVERY 4 HOURS NEEDED, Starting on Thu12/11/21 at 1452, Until Thu12/11/21 at 1859, Moderate Pain, Severe Pain, Higher dose may be administered if lower dose was previously documented as ineffective and did not result in adverse effects (RR<10, negative change in RASS of 2 or more). Decrease back to lower dose if patient has adverse effects or no PRN use in previous 12 hours. Hold for sedation., Recovery 1556 (See Alternativ e - Provider: Lanette Baptiste RN)1610 (See Alternative - Provider: Lanette Baptiste RN) oxyCODONE (ROXICODONE) tablet 5 mg(Linked Group 2) 5 mg, Oral, EVERY 4 HOURS NEEDED, Starting on Thu12/11/21 at 1452, Until Thu12/11/21 at 1859, Moderate Pain, Severe Pain, Use as initial dose. Higher dose may be administered if lower dose was previously documented as ineffective and did not result in adverse effects (RR<10, negative change in RASS of 2 or more)., Recovery 1556 (Given - Provid er: Lanette Baptiste RN)1610 (Given - Provider: Lanette Baptiste RN) promethazine (PHENERGAN) injection 6.25 mg 6.25 mg, Intravenous, EVERY 1 HOUR NEEDED, 2 doses, Starting on Thu12/11/21 at 1452, Until Thu12/11/21 at 1859, Nausea / Vomiting, SECOND line antiemetic, Do not administer within 6 hours of intra-operative dose. AVOID Intra-arterial administration; necrosis & gangrene have resulted. Hand, wrist or foot veins SHOULD BE AVOIDED. Dilute dose with 20 mL normal saline and inject over 5 minutes. Extravasation Risk. If given via IV route: dilute dose with 10mL normal saline and inject through a running IV or line over 5 minutes OR if no active IV or line is saline-dwelled dilute dose with 20mL normal saline and administer over 5 minutes. AVOID Intra-arterial administration; necrosis & gangrene have resulted. Hand, wrist or foot veins SHOULD BE AVOIDED., Recovery tobramycin PF (NEBCIN) 80 mg in sodium chloride 0.9 % 1,000 mL irrigation solution (CANCELED) NEEDED, Starting on Thu12/11/21 at 1319, Until Thu12/11/21 at 1516, Intra-op/Intra-Proc 1319 (Given - Provid er: Betty Leiva MD - Comment: for autograft) Linked Groups Order Group 1: HYDROmorphone (DILAUDID) injection 0.2 mgJump to med 0.2 mg, Intravenous, EVERY 5 MINUTES NEEDED, Starting on Thu12/11/21 at 1452, Until Thu12/11/21 at 1859, Moderate Pain, Severe Pain
Use as initial dose. Higher dose may be administered if lower dose did not result in adverse effects (RR<10, decrease in level of consciousness) and was previously documented as ineffective. May give a total of 4mg in PACU.
Recovery Or HYDROmorphone (DILAUDID) injection 0.5 mgJump to med 0.5 mg, Intravenous, EVERY 5 MINUTES NEEDED, Starting on Thu12/11/21 at 1452, Until Thu12/11/21 at 1859, Moderate Pain, Severe Pain
Higher dose may be administered if lower dose did not result in adverse effects (RR<10, decrease in level of consciousness) and was previously documented as ineffective. Decrease back to lower dose if patient has adverse effects, or no PRN used in previous 30 minutes. May give a total of 4mg in PACU .
Recovery Group 2: oxyCODONE (ROXICODONE) tablet 5 mgJump to med 5 mg, Oral, EVERY 4 HOURS NEEDED, Starting on Thu12/11/21 at 1452, Until Thu12/11/21 at 1859, Moderate Pain, Severe Pain
Use as initial dose. Higher dose may be administered if lower dose was previously documented as ineffective and did not result in adverse effects (RR<10, negative change in RASS of 2 or more).
Recovery Or oxyCODONE (ROXICODONE) tablet 10 mgJump to med 10 mg, Oral, EVERY 4 HOURS NEEDED, Starting on Thu12/11/21 at 1452, Until Thu12/11/21 at 1859, Moderate Pain, Severe Pain
Higher dose may be administered if lower dose was previously documented as ineffective and did not result in adverse effects (RR<10, negative change in RASS of 2 or more). Decrease back to lower dose if patient has adverse effects or no PRN use in previous 12 hours. Hold for sedation.
Recovery Scheduled Medication Order 06/14/2022 06/15/2022 06/16/2022 Calcium chloride injection 1 g 1 g, Intravenous, ONCE, 1 dose, On Thu06/16/22 at 1115, -OBTAIN CALCIUM CHLORIDE 10 MG/10 ML FOR USE WITH GPS DURING SURGERY Extravasation Risk, Pre-op/Pre-Proc 1115 (Canceled Entry - Provider: System Discharge - Comment: Automatically canceled at discontinue of medication order) Scopolamine (TRANSDERM-SCOP) patch 1 patch 1 patch, Transdermal, ONCE, 1 dose, On Thu06/16/22 at 1215, Each patch delivers 1 mg over 72 hours., Pre-op/Pre-Proc 1205 (Patch Applied - Provider: Maria M Angeles RN)1440 (Due: Patch Removed - Provider: System Discharge - Comment: Time automatically adjusted from order being discontinued) Continuous Medication Order 06/14/2022 06/15/2022 06/16/2022 Lactated ringers IV solution Intravenous, at 20 mL/hr, CONTINUOUS, Starting on Thu06/16/22 at 1115, Until Thu06/16/22 at 1649, Pre-op/Pre-Proc 1242 ($$New Bag$$ - Provider: BASSEM Tapia)1335 (Anesthesia Volume Adjustment - Provider: BASSEM Tapia) PRN Medication Order 06/14/2022 06/15/2022 06/16/2022 ceFAZolin (ANCEF) 2 g in dextrose 100 mL premix IVPB (COMPLETED) 2 g, Intravenous, Administer over 30 Minutes, DRY TALC RACKER TO PROCEDURE, 1 dose, Starting on Thu06/16/22 at 1104, Until Discontinued, Other, Surgical Prophylaxis, Initiate antibiotic administration 30-60 minutes prior to surgical incision and complete administration prior to surgical incision., Pre-op/Pre-Proc 1247 (Given - Provid er: BASSEM Tapia) fentaNYL (SUBLIMAZE) injection 25 mcg 25 mcg, Intravenous, Administer over 2 Minutes, EVERY 5 MINUTES NEEDED, Starting on Thu06/16/22 at 1330, Until Thu06/16/22 at 1649, Moderate Pain, Max 200mcg, Post-op/Post-Proc HYDROmorphone (DILAUDID) injection 0.2 mg(Linked Group 1) 0.2 mg, Intravenous, EVERY 5 MINUTES NEEDED, Starting on Thu06/16/22 at 1330, Until Thu06/16/22 at 1649, Moderate Pain, Severe Pain, Use as initial dose. Higher dose may be administered if lower dose did not result in adverse effects (RR<10, decrease in level of consciousness) and was previously documented as ineffective. May give a total of 4mg in PACU., Recovery HYDROmorphone (DILAUDID) injection 0.5 mg(Linked Group 1) 0.5 mg, Intravenous, EVERY 5 MINUTES NEEDED, Starting on Thu06/16/22 at 1330, Until Thu06/16/22 at 1649, Moderate Pain, Severe Pain, Higher dose may be administered if lower dose did not result in adverse effects (RR<10, decrease in level of consciousness) and was previously documented as ineffective. Decrease back to lower dose if patient has adverse effects, or no PRN used in previous 30 minutes. May give a total of 4mg in PACU ., Recovery lidocaine 1% buffered in sodium bicarbonate 1-8.4 % injection SOSY 1 mL 1 mL, Intradermal, ONCE NEEDED, 1 dose, Starting on Thu06/16/22 at 1104, Until Thu06/16/22 at 1649, Other, Use for peripheral IV insertion, Use when inserting peripheral IV, Pre-op/Pre-Proc Lidocaine-epinephrine 1%-1:923438 injection (CANCELED) NEEDED, Starting on Thu06/16/22 at 1310, Until Thu06/16/22 at 1342, Intra-op/Intra-Proc 1310 (Given - Provid er: Betty Leiva MD) Ondansetron 4mg/2ml (ZOFRAN) injection 4 mg 4 mg, Intravenous, ONCE NEEDED, 1 dose, Starting on Thu06/16/22 at 1330, Until Thu06/16/22 at 1649, Nausea / Vomiting, FIRST line antiemetic, Do not administer within 6 hours of intra-operative dose., Recovery oxyCODONE (ROXICODONE) tablet 5 mg 5 mg, Oral, EVERY 5 MINUTES NEEDED, Starting on Thu06/16/22 at 1330, Until Thu06/16/22 at 1649, Moderate Pain, May repeat x 1 dose for moderate pain, May repeat one dose for moderate pain, Post-op/Post-Proc 1354 (Given - Provid er: Arely Merino RN) Linked Groups Order Group 1: HYDROmorphone (DILAUDID) injection 0.2 mgJump to med 0.2 mg, Intravenous, EVERY 5 MINUTES NEEDED, Starting on Thu06/16/22 at 1330, Until Thu06/16/22 at 1649, Moderate Pain, Severe Pain
Use as initial dose. Higher dose may be administered if lower dose did not result in adverse effects (RR<10, decrease in level of consciousness) and was previously documented as ineffective. May give a total of 4mg in PACU.
Recovery Or HYDROmorphone (DILAUDID) injection 0.5 mgJump to med 0.5 mg, Intravenous, EVERY 5 MINUTES NEEDED, Starting on Thu06/16/22 at 1330, Until Thu06/16/22 at 1649, Moderate Pain, Severe Pain
Higher dose may be administered if lower dose did not result in adverse effects (RR<10, decrease in level of consciousness) and was previously documented as ineffective. Decrease back to lower dose if patient has adverse effects, or no PRN used in previous 30 minutes. May give a total of 4mg in PACU .
Recovery Scheduled Medication Order 04/13/2023 04/14/2023 04/15/2023 Scopolamine (TRANSDERM-SCOP) patch 1 patch(Linked Group 1) 1 patch, Transdermal, EVERY 72 HOURS, First dose on Thu04/15/23 at 0715, Until Discontinued, Apply patch to site behind the ear. Rotate sites for each application. Do not cut or alter patch. Each patch delivers 1 mg over 72 hours. 0642 (Patch Applied - Provider: Mora Shabazz RN)0935 (Due: Patch Removed - Provider: System Discharge - Comment: Time automatically adjusted from order being discontinued) VERIFY LINKED PATCH PLACEMENT(Linked Group 1) Other, EVERY 12 HOURS, First dose on Thu04/15/23 at 0900, Until Discontinued, Confirm continued adhesion of scopolamine 1.5 mg/72hr patch at documented site. 0900 (Canceled Entry - Provider: System Discharge - Comment: Automatically canceled at discontinue of medication order) Continuous Medication Order 04/13/2023 04/14/2023 04/15/2023 Lactated ringers IV solution Intravenous, at 20 mL/hr, CONTINUOUS, Starting on Thu04/15/23 at 0645, Until Thu04/15/23 at 1141, Pre-op/Pre-Proc 0712 ($$New Bag$$ - Provider: BASSEM Tapia)0803 ($$New Bag$$ - Provider: BASSEM Tapia) PRN Medication Order 04/13/2023 04/14/2023 04/15/2023 ceFAZolin (ANCEF) 2 g in dextrose 100 mL premix IVPB (COMPLETED) 2 g, Intravenous, Administer over 30 Minutes, DRY TALC RACKER TO PROCEDURE, 1 dose, Starting on Thu04/15/23 at 0630, Until Discontinued, Other, Surgical Prophylaxis, Initiate antibiotic administration 30-60 minutes prior to surgical incision and complete administration prior to surgical incision., Pre-op/Pre-Proc 0717 (Given - Provid er: Sherin Cr, CAN FILLING MACHINE OPERATOR-CLOUD ADMINISTRATOR) fentaNYL (SUBLIMAZE) injection 25 mcg 25 mcg, Intravenous, Administer over 2 Minutes, EVERY 5 MINUTES NEEDED, Starting on Thu04/15/23 at 0812, Until Thu04/15/23 at 1141, Moderate Pain, Severe Pain, Additional dose may be administered only if first dose did not result in adverse effects (RR<10, decrease in level of consciousness) and was previously documented as ineffective. May give a total of 200mcg in PACU. If pain unrelieved after 200mcg, notify Anesthesia provider., Recovery 0831 (Given - Provid er: Chrissy Avila RN)0840 (Given - Provider: Chrissy Avila RN)0849 (Given - Provider: Chrissy Avila, HENNY) Haloperidol lactate (HALDOL) injection 1 mg 1 mg, Intravenous, ONCE NEEDED, 1 dose, Starting on Thu04/15/23 at 0812, Until Thu04/15/23 at 1141, FIRST line Nausea/vomiting,, If patient still experiencing nausea/vomiting after 1st dose use 2nd line antiemetic, Recovery hydrALAZINE (APRESOLINE) injection 5 mg 5 mg, Intravenous, EVERY 15 MINUTES NEEDED, Starting on Thu04/15/23 at 0812, Until Thu04/15/23 at 1141, SBP > 180 mmHg, SECOND line HTN, For SBP > 180 Use if HR < 60. Administer over 2 minutes. May give a total of 20 mg while in PACU. Notify MD if BP still uncontrolled after 2 mg and no other antihypertensive agents are ordered., Recovery lidocaine 1% buffered in sodium bicarbonate 1-8.4 % injection SOSY 1 mL 1 mL, Intradermal, ONCE NEEDED, 1 dose, Starting on Thu04/15/23 at 0630, Until Thu04/15/23 at 1141, Other, Use for peripheral IV insertion, Use when inserting peripheral IV, Pre-op/Pre-Proc Lidocaine-epinephrine 1%-1:711882 injection (CANCELED) NEEDED, Starting on Thu04/15/23 at 0740, Until Thu04/15/23 at 0821, Intra-op/Intra-Proc 0740 (Given - Provid er: Betty Leiva MD) oxyCODONE (ROXICODONE) tablet 5 mg (COMPLETED) 5 mg, Oral, ONCE NEEDED, 1 dose, Starting on Thu04/15/23 at 0812, Until Thu04/15/23 at 2359, Moderate Pain, Recovery 0831 (Given - Provid er: Chrissy Avila RN) Linked Groups Order Group 1: Scopolamine (TRANSDERM-SCOP) patch 1 patchJump to med 1 patch, Transdermal, EVERY 72 HOURS, First dose on Thu04/15/23 at 0715, Until Discontinued
Apply patch to site behind the ear. Rotate sites for each application. Do not cut or alter patch. Each patch delivers 1 mg over 72 hours.
And VERIFY LINKED PATCH PLACEMENTJump to med Other, EVERY 12 HOURS, First dose on Thu04/15/23 at 0900, Until Discontinued
Confirm continued adhesion of scopolamine 1.5 mg/72hr patch at documented site.
FOR RECORDS PERTAINING TO PATIENTS WHO ARE OR HAVE BEEN ENROLLED IN A CHEMICAL DEPENDENCY/SUBSTANCEABUSE PROGRAM, SOME INFORMATION MAY BE OMITTED. This clinical summary was aggregated from multiple sources. Caution should be exercised in using it in the provision of clinical care. This summary normalizes information from multiple sources, and as a consequence, information in this document may materially change the coding, format and clinical context of patient data. In addition, data may be omitted in some cases. CLINICAL DECISIONS SHOULD BE BASED ON THE PRIMARY CLINICAL RECORDS. [facility]. provides no warranty or guarantee of the accuracy or completeness of information in this document.
[2023-06-25 12:35] LABS: Absolute Lymphocyte Count 2.23 X10^3/uL (0.83-4.51); Absolute Neutrophil Count 2.6 X10^3/uL (2.0-7.7); Basophil# 0.03 X10^3/uL; Basophil% 0.5 % (0-1); Eosinophil# 0.11 X10^3/uL; Hematocrit 40.4 % (37-47); Hemoglobin 13.9 g/dL (12.0-15.0); Lymphocyte # 2.23 X10^3/ul (0.83-4.51); Lymphocyte % 40.5 % (19-41); Mean Corp Hgb Conc 34.4 g/dL (32-36); Mean Corpuscular Hgb 30.2 pg (27.0-32.0); Mean Corpuscular Volume 87.8 fL (81-99); Mean Platelet Vol. 10.1 fl (6.2-12.0); Monocyte# 0.52 X10^3/uL; Monocyte% 9.4 % (0-10); NRBC Flagged by Analyzer 0 % (0-5); Neutrophil # 2.61 X10^3/uL (2.7-7.7); Neutrophil % 47.4 % (47-70); Platelet Count 341 K/mm3 (150-450); RBC Distribution Width CV 11.8 % (11.6-14.6); RBC Distribution Width SD 37.9 fl (35.1-43.9); White Blood Count 5.5 K/mm3 (4.4-11.0)
[2023-06-25 15:03] LABS: ALB/GLOB Ratio 0.9 RATIO (0.9-2.4); AST(SGOT) 18 U/L (15-37); Alanine Aminotransfer ALT/SGPT 31 U/L (13-56); Albumin, Serum 3.9 g/dL (3.2-5.0); Alkaline Phosphatase 67 U/L (45-117); Anion Gap 8 (5-15); BUN 15 mg/dL (7-18); BUN/Creat Ratio 18.1 RATIO (10-20); Calcium,Total 9.2 mg/dL (8.5-10.1); Chloride 105 mmol/L (98-107); Creatinine, Serum 0.83 mg/dL (0.55-1.02); EST Glomerular Filtration Rate 89 mL/min (>60); Est Glom Filt Rate - Afr Amer 108 mL/min (>60); Globulin 4.2 g/dL (2.2-4.2); Glucose 102 mg/dL (74-106); Lipase 27 U/L (13-75); Potassium 4.2 mmol/L (3.5-5.1); Protein, Total 8.1 g/dL (6.4-8.2); Sodium Level 137 mmol/L (136-145); T4 Free Direct 1.03 ng/dL (0.76-1.46); Thyroid Stim Hormone (TSH) 1.84 uIU/mL (0.358-3.74)
[2023-06-30 17:07] LABS: Deamidated Gliadin IgA 10 units (0-19); Deamidated Gliadin IgG 7 units (0-19); Endomysial Antibody IgA Negative (Negative); Immunoglobulin A 214 mg/dL (87-352); T3 Reverse 18.2 ng/dL (9.2-24.1); t-Transglutaminase IgA <2 U/mL (0-3)
== END | disposition home or self-care (01) ==
PROVIDERS: Visit Provider Nurse Practitioner
DX: K59.00 Constipation, unspecified (principal)
CPT/HCPCS: 80053; 82784; 83516; 83690; 84439; 84443; 84482; 85025; 86255

== ENCOUNTER → 2023-06-26 | Outpatient (CLI) | payer BC, SELFPAY ==
[2023-07-01 17:07] LABS: Calprotectin, Stool 12 ug/g (0-120)
== END | disposition home or self-care (01) ==
PROVIDERS: Referring Provider Nurse Practitioner; Visit Provider Nurse Practitioner
DX: K59.00 Constipation, unspecified (principal)
CPT/HCPCS: 82274; 83993

== ENCOUNTER → 2023-07-14 | Outpatient (CLI) | payer BC, SELFPAY ==
--- NOTE | 2023-07-14 07:28 | US_ITS ---
STUDY: ABDOMINAL ULTRASOUND REASON FOR EXAM: Female, 23 years old. 6 month history of right upper quadrant pain. TECHNIQUE: Transabdominal ultrasound was performed with real-time and static shaver scale imaging. TECHNICAL QUALITY: Adequate. COMPARISON: None. FINDINGS: Liver: The liver measures 14.6 cm. There is normal echogenicity of the liver. The bile ducts are within normal limits. There is hepatic color flow. The direction of portal flow is hepatopetal. There is no demonstrated mass lesion. Gallbladder: Normal distended gallbladder. The gallbladder wall measures 2.4 mm. There is a negative sonographic Real''s sign. There is no pericholecystic fluid. There are no gallstones. Common Bile Duct (C.B.D.): The common bile duct measures 4.1 mm. Pancreas: Normal size of the head, body and tail of the pancreas. There is normal echogenicity of the pancreas. There is no demonstrated pancreatic mass or cyst. Spleen: Normal size of the spleen. The spleen measures 9.6 x 2 x 4.3 cm x 3.6 cm. Right Kidney: Normal size of the right kidney. The right kidney measures 10.6 cm x 5.4 cm x 4.5 cm. Normal renal cortex. The right cortex measures 1.1 cm. There is no demonstrated renal mass or cyst. There is no right hydronephrosis. Left Kidney: Normal size of the left kidney. The left kidney measures 10.9 cm x 4.7 cm x 6 cm. Normal renal cortex. The left cortex measures 1.7 cm. There is no demonstrated renal mass or cyst. There is no left hydronephrosis. Aorta: Unremarkable I.V.C.: The IVC is patent. There is no ascites. US/Abdomen Complete IMPRESSION: Normal abdominal ultrasound examination. Electronically Signed: Joby Johnson MD at 14:41 EDT ,
[2023-07-14 14:42] LABS: Bacteria 0 SEEN /hpf (None Seen); Mucous, Urine 0 SEEN /hpf (<or=2+); Red Blood Cells-Urine 0 SEEN /hpf (0-5); White Blood Cells 0 SEEN /hpf (0-5)
[2023-07-14 16:30] LABS: Color, Urine Yellow (Yellow); Glucose, Dipstick Normal (Normal); Ketone-Dipstick 15 mg/dl (Negative); Leukocyte Esterase-Dipstick Negative /ul (Negative); Nitrite-Dipstick Negative (Negative); Occult Blood-Urine 25 /ul (Negative); Protein-Dipstick 15 mg/dl (Negative); Urine Bilirubin Dipstick Negative (Negative); Urine Clarity Clear (Clear); Urine Urobilinogen Normal (Normal)
[2023-07-14 16:33] LABS: Hematocrit 41.5 % (37-47); Hemoglobin 14.1 g/dL (12.0-15.0); Mean Corpuscular Volume 85.4 fL (81-99); Mean Platelet Vol. 10.1 fl (6.2-12.0); Platelet Count 323 K/mm3 (150-450); RBC Distribution Width CV 11.8 % (11.6-14.6); RBC Distribution Width SD 36.1 fl (35.1-43.9); Red Blood Count 4.86 M/mm3 (4.2-5.4); White Blood Count 13.8 K/mm3 (4.4-11.0)
[2023-07-14 16:43] LABS: ALB/GLOB Ratio 0.9 RATIO (0.9-2.4); AST(SGOT) 18 U/L (15-37); Alanine Aminotransfer ALT/SGPT 29 U/L (13-56); Albumin, Serum 3.9 g/dL (3.2-5.0); Alkaline Phosphatase 65 U/L (45-117); Amylase 37 U/L (25-115); Anion Gap 6 (5-15); BUN 13 mg/dL (7-18); BUN/Creat Ratio 16.9 RATIO (10-20); Chloride 104 mmol/L (98-107); Creatinine, Serum 0.77 mg/dL (0.55-1.02); EST Glomerular Filtration Rate 97 mL/min (>60); Est Glom Filt Rate - Afr Amer 117 mL/min (>60); Globulin 4.5 g/dL (2.2-4.2); Glucose 98 mg/dL (74-106); Lipase 23 U/L (13-75); Potassium 3.9 mmol/L (3.5-5.1); Protein, Total 8.4 g/dL (6.4-8.2); Sodium Level 136 mmol/L (136-145)
[2023-07-14 16:47] LABS: Squamous Epithelial Cells - UA 0-5 SEEN /hpf (5-10)
== END | disposition home or self-care (01) ==
PROVIDERS: PCP Nurse Practitioner; Referring Provider Nurse Practitioner; Visit Provider Nurse Practitioner
DX: K59.00 Constipation, unspecified (principal); R10.31 Right lower quadrant pain
CPT/HCPCS: 36415; 76700; 80053; 81001; 82150; 83690; 85027

== ENCOUNTER → 2023-12-02 | Outpatient (CLI) | payer BC, SELFPAY ==
[2023-12-02 09:03] LABS: Absolute Lymphocyte Count 2.19 X10^3/uL (0.83-4.51); Absolute Neutrophil Count 3.4 X10^3/uL (2.0-7.7); Basophil# 0.03 X10^3/uL; Basophil% 0.5 % (0-1); Eosinophil# 0.08 X10^3/uL; Eosinophils% 1.3 % (0-5); Hematocrit 38.5 % (37-47); Hemoglobin 13.1 g/dL (12.0-15.0); Lymphocyte # 2.19 X10^3/ul (0.83-4.51); Mean Corpuscular Hgb 29.4 pg (27.0-32.0); Mean Corpuscular Volume 86.3 fL (81-99); Mean Platelet Vol. 10.1 fl (6.2-12.0); Monocyte# 0.53 X10^3/uL; Monocyte% 8.5 % (0-10); NRBC Flagged by Analyzer 0 % (0-5); Neutrophil # 3.42 X10^3/uL (2.7-7.7); Neutrophil % 54.5 % (47-70); Platelet Count 298 K/mm3 (150-450); RBC Distribution Width CV 11.6 % (11.6-14.6); RBC Distribution Width SD 36.4 fl (35.1-43.9); Red Blood Count 4.46 M/mm3 (4.2-5.4); White Blood Count 6.3 K/mm3 (4.4-11.0)
[2023-12-02 09:42] LABS: ALB/GLOB Ratio 0.9 RATIO (0.9-2.4); AST(SGOT) 17 U/L (15-37); Alanine Aminotransfer ALT/SGPT 19 U/L (13-56); Albumin, Serum 3.7 g/dL (3.2-5.0); Alkaline Phosphatase 60 U/L (45-117); Anion Gap 4 (5-15); BUN 12 mg/dL (7-18); BUN/Creat Ratio 15.5 RATIO (10-20); CRP < 2.90 mg/L (0.0-3.0); Calcium,Total 9.3 mg/dL (8.5-10.1); Chloride 108 mmol/L (98-107); Creatinine, Serum 0.78 mg/dL (0.55-1.02); EST Glomerular Filtration Rate 96 mL/min (>60); Est Glom Filt Rate - Afr Amer 116 mL/min (>60); Globulin 4.2 g/dL (2.2-4.2); Glucose 85 mg/dL (74-106); Potassium 4.1 mmol/L (3.5-5.1); Protein, Total 7.9 g/dL (6.4-8.2); Sodium Level 137 mmol/L (136-145)
[2023-12-02 10:20] LABS: Erythrocyte Sedimentation Rate 4 mm/hr (0-30)
[2023-12-07 04:07] LABS: Anti-Centromere B Ab <0.2 AI (0.0-0.9); Anti-Chromatin <0.2 AI (0.0-0.9); Anti-Jo <0.2 AI (0.0-0.9); Anti-Scleroderma-70 AB <0.2 AI (0.0-0.9); Anti-dsDNA Ab <1 IU/mL (0-9); Beef <0.10 kU/L (Class 0); Chocolate <0.10 kU/L (Class 0); Codfish <0.10 kU/L (Class 0); Corn <0.10 kU/L (Class 0); Egg, Whole <0.10 kU/L (Class 0); Milk (Cow) <0.10 kU/L (Class 0); Mussels <0.10 kU/L (Class 0); Peanut <0.10 kU/L (Class 0); Pork <0.10 kU/L (Class 0); RNP Ab <0.2 AI (0.0-0.9); SJOGREN'S Anti-SS-A test < 0.2 AI (0.0-0.9); SJOGREN'S Anti-SS-B test < 0.2 AI (0.0-0.9); Salmon <0.10 kU/L (Class 0); Shrimp <0.10 kU/L (Class 0); Smith Ab <0.2 AI (0.0-0.9); Soybean <0.10 kU/L (Class 0); Tuna <0.10 kU/L (Class 0); Wheat <0.10 kU/L (Class 0)
[2023-12-07 19:07] LABS: ACCA 29 units (0-90); ALCA 9 units (0-60); AMCA 30 units (0-100); Albumin 3.9 g/dL (2.9-4.4); Alpha-1-Globulins 0.2 g/dL (0.0-0.4); Alpha-2-Globulins 0.7 g/dL (0.4-1.0); Cytoplasmic Ab (C-ANCA) <1:20 titer (Neg:<1:20); Endomysial Antibody IgA Negative (Negative); Gamma Globulin 1.5 g/dL (0.4-1.8); Immunoglobulin A 217 mg/dL (87-352); Immunoglobulin E 19 IU/mL (6-495); Immunoglobulin G 1379 mg/dL (586-1602); Immunoglobulin M 218 mg/dL (26-217); PROEL- TOTAL PROTEIN 7.3 g/dL (6.0-8.5); Perinuclear Ab (P-ANCA) <1:20 titer (Neg:<1:20); gASCA 2 units (0-50); t-Transglutaminase IgA <2 U/mL (0-3)
== END | disposition home or self-care (01) ==
LOC: LAB 08:09
PROVIDERS: PCP Nurse Practitioner; Referring Provider Student in an Organized Health Care Education/Training Program; Visit Provider Student in an Organized Health Care Education/Training Program
DX: R10.31 Right lower quadrant pain (principal); K59.00 Constipation, unspecified
CPT/HCPCS: 36415; 80053; 82784; 82785; 83516; 84165; 85025; 85652; 86003; 86005; 86036; 86140; 86225; 86235; 86255; 86256; 86334; 86671

== ENCOUNTER → 2023-12-17 | Outpatient (CLI) | payer BC, SELFPAY ==
--- NOTE | 2023-12-17 18:56 | CT_ITS ---
STUDY: CT ABDOMEN AND PELVIS WITH CONTRAST REASON FOR EXAM: Female, 23 years old. Abdominal pain RADIATION DOSAGE (If Supplied By Facility): CTDIvol = ( 15.91 ) mGy, DLP = ( 752.39 ) mGycm TECHNIQUE: Transaxial images were obtained from the dome of the diaphragm to the symphysis pubis without oral contrast. IV 100mL Isovue-370 was administered. Sagittal and coronal images were reconstructed. Individualized dose optimization techniques were used for this CT. COMPARISON: Comparison is made with prior study July 14, 2023. FINDINGS: The visualized lung bases are unremarkable. The visualized portions of the heart are within normal limits. Normal liver. Normal gallbladder and extrahepatic biliary system. Normal spleen. Normal pancreas. Normal bilateral adrenal glands. Normal right kidney. Normal left kidney. Normal visualized stomach. Normal small intestine. Moderate amount of fecal material is seen throughout the colon. The appendix is visualized and appears normal. Normal abdominal aorta. Normal inferior vena cava. Normal retroperitoneum. Normal urinary bladder. Normal abdominal wall. Normal osseous structures. CT/Abdomen/Pelvis WITH Contrast IMPRESSION: Normal enhanced CT of the abdomen and pelvis. Electronically Signed: Joby Johnson MD at 8:59 EDT ,
== END | disposition home or self-care (01) ==
LOC: CT 18:54
PROVIDERS: PCP Nurse Practitioner; Referring Provider Student in an Organized Health Care Education/Training Program; Visit Provider Student in an Organized Health Care Education/Training Program
DX: R10.31 Right lower quadrant pain (principal)
CPT/HCPCS: 74177; Q9967

== ENCOUNTER → 2024-02-26 | Outpatient (CLI) | payer BC, SELFPAY ==
--- NOTE | 2024-02-26 15:47 | US_ITS ---
HISTORY: acute on chronic rlq pain. TECHNIQUE: Transabdominal and transvaginal pelvic ultrasound was performed with shaver scale , spectral Doppler, and color Doppler evaluation. 149 images. COMPARISON: 06/16/2023. FINDINGS: UTERUS: 6.4 x 3 x 4.2 cm. Anteverted. ENDOMETRIAL THICKNESS: 2 mm. Intrauterine device no longer identified. RIGHT OVARY: 2.1 x 2.3 x 3.5 cm with small follicles. Vascular flow demonstrated. No adnexal masses. LEFT OVARY: 2.4 x 2.7 x 3.4 cm with a 2 cm cyst. FREE FLUID: None. US/Pelvic w/ Transvaginal IMPRESSION: Vascular flow demonstrated to the right ovary. Small left ovarian cyst. Electronically Signed: Tiana Brunner MD at 13:47 EST ,
== END | disposition home or self-care (01) ==
LOC: US 15:47
PROVIDERS: PCP Nurse Practitioner; Referring Provider Obstetrics & Gynecology; Visit Provider Obstetrics & Gynecology
DX: R10.31 Right lower quadrant pain (principal)
CPT/HCPCS: 76830; 76856